=== PATIENT | male | born 1980 | race Caucasian/White ===

== ENCOUNTER 2020-11-14 08:53 | Outpatient (CLI) | payer OTHER, SELFPAY ==
--- NOTE | ~2020-11-14 | XR_ITS ---
EXAMINATION: XR chest 2V, XR abdomen/kub 1V DATE: 11/14/2020 09:14 INDICATION: Chest pain and gaseous abdominal distention. TECHNIQUE: 1. PA and lateral views of the chest were obtained. 2. AP view of the abdomen and pelvis was obtained on 2 radiographs. COMPARISON: None FINDINGS: Chest: The lungs are clear with no focal airspace opacities, pulmonary edema, pleural effusion or pneumothor ax. The cardiomediastinal silhouette is normal. Mild thoracic spondylosis with mild anterior wedging of a few mid thoracic vertebral bodies. KUB: Small to moderate amount of gas and stool scattered throughout the normal caliber colon. No dilated g as-filled loops of bowel to suggest obstruction. No organomegaly. Mild lumbar spondylosis. Left supra -acetabular bone island. IMPRESSION: 1. No acute cardiopulmonary disease. 2. Normal bowel gas pattern. Reviewed, dictated and finalized at location A. IMPRESSION: 1. No acute cardiopulmonary disease. 2. Normal bowel gas pattern.
== END 2020-11-14 08:54 | disposition home or self-care (01) ==
PROVIDERS: PCP Family Medicine; Visit Provider Family Medicine
DX: R14.0 Abdominal distension (gaseous) (principal); R07.89 Other chest pain
CPT/HCPCS: 71046; 74018

== ENCOUNTER 2021-04-23 15:35 | Outpatient (CLI) | payer OTHER, SELFPAY ==
--- NOTE | ~2021-04-23 | XR_ITS ---
XR lumbar spine 2-3V DATE: 04/23/2021 15:57 INDICATION: Back pain TECHNIQUE: AP, lateral, coned lateral lumbosacral views COMPARISON: 11/22/2017 CT lumbar spine FINDINGS: There is moderately severe degenerative disc disease at L1 to and mild degenerative disc di sease at L2-3, L3-4. No fracture or bone destruction. The lumbar pedicles are intact. No spondylolisthesis. The sacroiliac joints are intact. IMPRESSION: Multilevel degenerative disc disease involving primarily the upper lumbar area Reviewed, dictated and finalized at location A.
== END 2021-04-23 15:36 | disposition home or self-care (01) ==
LOC: ANHIMG 15:41
PROVIDERS: PCP Family Medicine; Visit Provider Physician Assistant
DX: M47.27 Other spondylosis with radiculopathy, lumbosacral region (principal); S39.012A Strain of muscle, fascia and tendon of lower back, initial encounter
CPT/HCPCS: 72100

== ENCOUNTER 2023-02-12 09:10 | Emergency (ER) | payer OTHER, SELFPAY ==
[2023-02-12 09:25] VITALS: BP 129/70; PULSE 78; RESP 18; TEMP 36.2; O2SAT 100
--- NOTE | 2023-02-12 09:33 | ED.SKABFB ---
HPI - Skin/Abscess/Foreign Bdy General Chief complaint: Skin/Abscess/Foreign Body Stated complaint: Abscess Time Seen by Provider: 02/12/23 09:29 Source: patient and RN notes reviewed Mode of arrival: ambulatory Limitations: no limitations History of Present Illness HPI narrative: Patient presents today complaining of an abscess between his buttocks x1 week that has been worsening since onset. He has been taking ibuprofen without much relief. Denies drainage, fever. He has been using some topical salve as well. No history of abscesses, boils, staph infections. Related Data Allergies Allergy/AdvReac Type Severity Reaction Status Date / Time No Known Allergies Allergy Unverified 02/12/23 09:29 Review of Systems Review of Systems: CONSTITUTIONAL: Denies body aches, fever, chills, or sweats. EYES: Denies visual changes, redness, or discharge. ENT: Denies rhinorrhea, congestion, sore throat, or otalgia. CARDIOVASCULAR: Denies chest pain, palpitations, or edema. RESPIRATORY: Denies cough or dyspnea. GASTROINTESTINAL: Denies abdominal pain, nausea, vomiting, or diarrhea. GENITOURINARY: Denies dysuria or hematuria. SKIN: + abscess MUSCULOSKELETAL: Denies back pain, joint pain, or myalgia. NEUROLOGIC: Denies headache, numbness, tingling, or weakness. PSYCH: Denies depression or anxiety. [facility] Past Medical History Medical History Lumbosacral spondylosis with radiculopathy Family History Family History Father Family history of premature coronary heart disease Patient's father is in good health Cerebrovascular accident Mother Patient's mother is in good health Sibling Patient's sister is in good health Social History Social History Social History: Smoking status: Never smoker Second hand tobacco smoke exposure: No Alcohol intake: current Alcohol use details: Once a month. Substance use: never Substance use type: does not use Living arrangements: with family Occupation/Education: occupation Gender identity (if verbalized by the patient): Male Sexual Orientation (if Verbalized by the Patient): Straight or Heterosexual Comments At time of signature, I have reviewed and agree with nursing past medical, surgical, social and family history unless otherwise noted. Please see nursing chart for further information. There is no relevant family history pertinent to the presenting complaint Exam Narrative: GENERAL: Well-appearing, well-nourished, and in no acute distress. HEAD: Normocephalic, atraumatic. EYES: EOMI. No redness or drainage. Conjunctivae normal. ENT: Mucous membranes pink and moist. NECK: Normal AROM. CHEST: No respiratory distress. EXTREMITIES: Normal range of motion. No edema. SKIN: Warm, dry, no rash. Capillary refill normal. Normal skin turgor. Approx 2.5cm fluctuant erythematous lesion to the anterior left buttock/perineal area. NEURO: No focal deficits. Alert and oriented x3. Gait steady. PSYCH: Normal affect. No signs of depression or anxiety. Course Course Level of Care: Express Care Visit Vital Signs Vital signs: Vital Signs Temperature 97.2 F L 02/12/23 09:25 Pulse Rate 78 02/12/23 09:25 Respiratory Rate 18 02/12/23 09:25 Blood Pressure 129/70 02/12/23 09:25 Pulse Oximetry 100 02/12/23 09:25 Oxygen Delivery Room Air 02/12/23 09:25 Temperature 97.2 F L 02/12/23 09:25 Pulse Rate 78 02/12/23 09:25 Respiratory Rate 18 02/12/23 09:25 Blood Pressure 129/70 02/12/23 09:25 Pulse Oximetry 100 02/12/23 09:25 Oxygen Delivery Room Air 02/12/23 09:25 Procedures Abscess I/D left buttock: Date of Incision: 02/12/23 Time of Incision: 10:03 Side (if applicable): left Sedation/analgesia: none L
== END 2023-02-12 10:21 | disposition home or self-care (01) ==
PROVIDERS: Emergency Provider Nurse Practitioner; PCP Family Medicine
DX: L02.31 Cutaneous abscess of buttock (principal); M47.27 Other spondylosis with radiculopathy, lumbosacral region
CPT/HCPCS: 10060; 87070; 87147; 87205; 99213; G0463

== ENCOUNTER 2023-09-03 13:42 | Emergency (ER) | payer OTHER, SELFPAY ==
--- NOTE | 2023-09-03 13:43 | ED.EYEPROB ---
HPI - Eye Problem General Chief complaint: Eye Problems Stated complaint: Rt Eye Irritation Time Seen by Provider: 09/03/23 13:43 Source: patient Mode of arrival: ambulatory Limitations: no limitations History of Present Illness HPI Narrative: Chaparro is a 42-year-old male patient presenting to the clinic today with complaints of right eye redness irritation times 2-3 days. He reports he was suffering from a cold last week and developed right eye redness, itchiness, and watering. States that he had some clear/white discharge coming from his eye/crusting this morning. Denies any eye pain or visual changes. Related Data Allergies Allergy/AdvReac Type Severity Reaction Status Date / Time No Known Allergies Allergy Verified 09/03/23 13:51 Review of Systems Review of Systems: Pertinent positives per HPI. Patient denies any fever, chills, rash, headache, visual changes, dizziness, cough, shortness of breath, chest pain, palpitations, nausea, vomiting, diarrhea, constipation, abdominal pain, or any urinary issues. PMFSH Past Medical History Medical History Lumbosacral spondylosis with radiculopathy Family History Family History Father Family history of premature coronary heart disease Patient's father is in good health Cerebrovascular accident Mother Patient's mother is in good health Sibling Patient's sister is in good health Social History Social History Social History: Smoking status: Never smoker Second hand tobacco smoke exposure: No Alcohol intake: current Alcohol use details: Once a month. Substance use: never Substance use type: does not use Living arrangements: with family Occupation/Education: occupation Gender identity (if verbalized by the patient): Male Sexual Orientation (if Verbalized by the Patient): Straight or Heterosexual Comments At the time of my signature, I reviewed and agree with the nursing past medical, surgical, social, and family history. There is no relevant family history pertinent to the patient complaint. Exam Narrative: General: Well-developed, well nourished, in no apparent distress Head: Normocephalic, atraumatic Eyes: Pupils equally round and reactive to light bilaterally, EOM intact, left sclera and conjunctive clear, right sclera and conjunctiva mildly injected, no discharge, lids normal Ears: TMs intact and clear, ear canals clear, no drainage, grossly hearing normal. Nose: Nares patent, no discharge, no inflammation, no sinus tenderness. Mouth: Oral pharynx without lesions or masses, good dentition, MMM. Neck: Supple, trachea midline, no enlargement of anterior or posterior cervical nodes, no thyroid masses or goiter palpable. Cardio: Regular rate and rhythm, s1 and s2 normal, no murmur appreciated. Resp: Clear to auscultation bilaterally, no rhonchi, rales, wheezing or rubs Course Course Emergency Course: Portions of this record may have been created with voice recognition software. Level of Care: Express Care Visit Vital Signs Vital signs: Vital signs reviewed MDM - Eye Problem MDM Narrative Medical decision making narrative: At the time of visit patient is resting comfortably on the exam table. Patient appears to be nontoxic. Plan: I suspect patient has acute viral conjunctivitis versus allergic conjunctivitis. Prescription for azelastine eyedrops was sent to the pharmacy. Supportive measures were discussed with the patient and they voiced understanding discharge instructions and agrees to treatment plan. Return precautions reviewed Differential Diagnosis Differential diagnosis: Likely corneal abrasion, conjunctivitis, acute iritis, hyphema, periorbital cellulitis, subconjunctival hemorrhage, glaucoma and corneal ulcer Discharge Plan Disch
[2023-09-03 13:50] VITALS: BP 133/74; PULSE 64; RESP 18; TEMP 36.7; O2SAT 100
== END 2023-09-03 14:00 | disposition home or self-care (01) ==
PROVIDERS: Emergency Provider Nurse Practitioner Family; PCP Family Medicine
DX: H57.89 Other specified disorders of eye and adnexa (principal); M47.26 Other spondylosis with radiculopathy, lumbar region
CPT/HCPCS: 99213; G0463

== ENCOUNTER 2024-06-11 08:07 | Emergency (ER) | payer OTHER, SELFPAY ==
[2024-06-11 08:44] VITALS: BP 143/79; PULSE 68; RESP 16; TEMP 36.6; O2SAT 100
--- NOTE | 2024-06-11 09:22 | ED_ITS ---
HPI - Back Pain/Injury General Chief Complaint: Back Pain/Injury Stated Complaint: Lower back pain Time Seen by Provider: 06/11/24 09:22 Source: patient Mode of arrival: ambulatory Limitations: no limitations History of Present Illness HPI Narrative: 43-year-old male presents complaining low back pain after injury yesterday. He states after vacuuming he lifted the vacuum and felt sharp pain to the mid lower back. He states he has had a similar pain in the past. He says at first the pain radiated into the hip and upper legs which has now improved. States pain is worse when standing upright, cannot tolerate standing straight. He has taken Aleve. Denies numbness, tingling, weakness of the lower extremities, or change in gait, saddle paresthesia or loss of bowel or bladder. Related Data Allergies Allergy/AdvReac Type Severity Reaction Status Date / Time No Known Allergies Allergy Verified 06/11/24 08:52 Review of Systems Review of Systems: CONSTITUTIONAL: Denies body aches, fever, chills EYES: Denies visual changes CARDIOVASCULAR: Denies chest pain, palpitations, or edema. RESPIRATORY: Denies cough or dyspnea. GASTROINTESTINAL: Denies abdominal pain, nausea, vomiting, or diarrhea. SKIN: Denies rash, itching, or wounds. MUSCULOSKELETAL: reports back pain NEUROLOGIC: Denies headache, numbness, tingling, or weakness. All systems reviewed & are unremarkable except as noted in HPI and below PMFSH Past Medical History Medical History Lumbosacral spondylosis with radiculopathy Family History Family History Father Family history of premature coronary heart disease Patient's father is in good health Cerebrovascular accident Mother Patient's mother is in good health Sibling Patient's sister is in good health Social History Social History Social History: Smoking status: Never smoker Second hand tobacco smoke exposure: No Alcohol intake: current Alcohol use details: Once a month. Substance use: never Substance use type: does not use Living arrangements: with family Occupation/Education: occupation Gender identity (if verbalized by the patient): Male Sexual Orientation (if Verbalized by the Patient): Straight or Heterosexual Comments At time of signature, I have reviewed and agree with nursing past medical, surgical, social and family history unless otherwise noted. Please see nursing chart for further information. There is no relevant family history pertinent to the presenting complaint Exam Narrative: GENERAL: Well-appearing CHEST: Speaks in full sentences. No respiratory distress. HEART: Regular rate and rhythm. Normal and equal peripheral pulses. MUSC: No Vertebral point tenderness or paraspinal tenderness. BLEs with normal strength and sensation, normal range of motion to BLEs. endorses pain with standing straight. No bruising, No open wounds, or obvious deformity; alignment normal, pulse palpable and equal bilaterally, skin warm, dry, pink. Capillary refill less than 3 seconds. Gait steady. SKIN: Warm, dry, no rash. NEURO: Alert and oriented x3. Course Course Emergency Course: Patient is aware of diagnosis, understands and agrees to treatment plan. Anticipatory guidance given. Patient agrees to follow-up as directed and is aware of reasons to seek care at the emergency department. Portions of this record may have been created with voice recognition software Level of Care: Express Care Visit Vital Signs Vital signs: Vital Signs Temperature 97.9 F 06/11/24 08:44 Pulse Rate 68 06/11/24 08:44 Respiratory Rate 16 06/11/24 08:44 Blood Pressure 143/79 H 06/11/24 08:44 Pulse Oximetry 100 06/11/24 08:44 Oxygen Delivery Room Air 06/11/24 08:44 Temperature 97.9 F 06/11/24 08:44 Pulse Rate 68 06/11/24 08:44 Respiratory Rate 16 06/11/24 08:44 Blood Pressure 143/79 H 06/11/24 08:44 Pulse Oximetry 100 06/11/24 08:44 Oxygen Delivery Room Air 06/11/24 08:44 Reviewed MDM - Back Pain/Injury MDM Narrative Medical decision making narrative: Discussed physical exam findings and reviewed prescriptions. Advised supportive measures and s/s to go to the ER. Pt is stable and appropr iate for outpt treatment and follow up with pcp. Differential Diagnosis Differential diagnosis: Likely lumbar radiculopathy, sciatica, strain of lumbar region, renal colic, pyelonephritis and discitis Discharge Plan Discharge Clinical Impression: Strain of lumbar region Patient Disposition: Home, Self-Care Condition: Stable Instructions: Antibiotic Form, Low Back Strain (ED) Additional Instructions: Please follow up with your Primary Care Doctor within 48-72 hours - call for an appointment. Avoid lifting. pushing. pulling, excessive standing, or anything that worsens the pain. Walking and other gentle exercising several times a week has been shown to improve back pain; bed rest is not recommended. Take medication as directed Take muscle relaxers every 8 hours as needed for muscle spasm- do not drive or make any important decisions while on this medication for it can make you drowsy. Over the counter pain cream like icy/hot or biofreeze, or Salon pas/lidocaine 4% patch. You may apply heat or cold to the area as needed. Go to the ER for any worsening symptoms or concerns Patient Language: Vietnamese Prescriptions: New cyclobenzaprine 10 mg tablet 10 mg PO TID PRN (Reason: muscle spasm) Qty: 10 0RF prednisone 20 mg tablet 20 mg PO DAILY Qty: 12 0RF Rx Instructions: Take 3 tablets for 2 days, then 2 tablets for 2 days, then one tablet for 2 days. No Action azelastine 0.05 % drops 1 drp LEFT EYE BID 7 Days Qty: 6 0RF Follow-up/Referrals: Lilibeth Low MD [Primary Care Provider] - Time of Disposition: 09:30
--- OUTSIDE RECORDS SUMMARY | 2024-06-18 15:59 | XMS_ITS | Encounter Summary ---
Author Organization [facility] Address [address] [place] [address] Care Team Providers Care Game Show Host Name Role Phone Unavailable Primary Care Provider Unavailabl e Reason for Visit * Reason Onset Date Comments Follow-up 07/04/2017 Encounter Details Date Type Department Care Team (Late st Contact Info) Description 07/04/2017 Telephone [facility] [employer] [facility] [address] [place] [address] Lu Reed, DIE [facility] [address] [place], [place] Follow-up Social History Tobacco Use Types Packs/Day Years Used Date Smoking Tobacco: Never Smokeless Tobacco: Never Sex and Gender Information Value Date Recorded Sex Assigned at Not on file Gender Identity Not on file Sexual Orientation Not on file documented as of this encounter Plan of Treatment Not on file documented as of this encounter Visit Diagnoses Not on filedocumented in this encounter
--- OUTSIDE RECORDS SUMMARY | 2024-06-18 15:59 | XMS_ITS | Patient Health Summary ---
Author Organization [facility] [employer] Address [address] [place] [address] Care Team Providers Care Esthetician And Manager Medical Spa Name Role Phone Unavailable Primary Care Provider Unavailabl e Note from [facility],non-owned Affiliates and Associated Physician Practices is amultiple site organization consisting of ambulatory clinics and hospital sitesin [place], [place], [place] and [place]. This disclosure is being madepursuant to the Care Everywhere program and may not contain all information available regarding this patient. Last updated 18.[facility] [employer] Allergies No known active allergies Medications Be aware that medications may not be up to date on this document. Always verify current medications with the patient. No known medications Social History Tobacco Use Types Packs/Day Years Used Date Smoking Tobacco: Never Smokeless Tobacco: Never Sex and Gender Information Value Date Recorded Sex Assigned at Not on file Gender Identity Not on file Sexual Orientation Not on file Last Filed Vital Signs Vital Sign Reading Time Taken Comments Blood Pressure 114/80 07/02/2017 3:45 PM WAITER/WAITRESS CAPTAIN Pulse 74 07/02/2017 3:45 PM WAITER/WAITRESS CAPTAIN Temperature 36.8 ??C (98.3 ??F) 07/02/2017 3:45 PM CS T Respiratory Rate 16 07/02/2017 3:45 PM WAITER/WAITRESS CAPTAIN Oxygen Saturation 98% 07/02/2017 3:45 PM WAITER/WAITRESS CAPTAIN Inhaled Oxygen Concentration - - Weight 108.4 kg (239 lb) 07/02/2017 3:45 PM WAITER/WAITRESS CAPTAIN Height 188 cm (6' 2 ) 07/02/2017 3:45 PM WAITER/WAITRESS CAPTAIN Body Mass Index 30.69 07/02/2017 3:45 PM WAITER/WAITRESS CAPTAIN Procedures * STREP A SCREEN - POINT OF CARE (AMB) STL(Performed 07/02/2017) Performed for Acute pharyngitis, unspecified etiology Results * STREP A SCREEN (07/02/2017 4:06 PM WAITER/WAITRESS CAPTAIN) Strep A Rapid POCT Negative Negative Strep A Internal Control Present Lot # [id number] Expiration Date 12/13/2018 Throat ENTIRE THROAT (SURFACE REGION OF NECK) / Unknown 07/02/2017 4:06 PM WAITER/WAITRESS CAPTAIN Lu Reed SALES REPRESENTATIVE [employer] ADMINISTRATOR LAB - POINT OF CARE ORDERABLES
--- OUTSIDE RECORDS SUMMARY | 2024-06-18 15:59 | XMS_ITS | Encounter Summary ---
Author Organization [facility] Address [facility] [place] [address] Care Team Providers Care Corporate Communications Manager Name Role Phone Unavailable Primary Care Provider Unavailabl e Reason for Visit * Reason Comments Sore Throat Encounter Details Date Type Department Care Team ([facility] st Contact Info) Description 07/02/2017 3:40 PM MARITIME GUARD Office Visit [facility] AT [address] [address] Provider, Paula [facility] Acute pharyngitis, unspecified etiology (Primary Dx) Social History Tobacco Use Types Packs/Day Years Used Date Smoking Tobacco: Never Smokeless Tobacco: Never Sex and Gender Information Value Date Recorded Sex Assigned at Not on file Gender Identity Not on file Sexual Orientation Not on file documented as of this encounter Last Filed Vital Signs Vital Sign Reading Time Taken Comments Blood Pressure 114/80 07/02/2017 3:45 PM MARITIME GUARD Pulse 74 07/02/2017 3:45 PM MARITIME GUARD Temperature 36.8 ??C (98.3 ??F) 07/02/2017 3:45 PM CS T Respiratory Rate 16 07/02/2017 3:45 PM MARITIME GUARD Oxygen Saturation 98% 07/02/2017 3:45 PM MARITIME GUARD Inhaled Oxygen Concentration - - Weight 108.4 kg (239 lb) 07/02/2017 3:45 PM MARITIME GUARD Height 188 cm (6' 2 ) 07/02/2017 3:45 PM MARITIME GUARD Body Mass Index 30.69 07/02/2017 3:45 PM MARITIME GUARD documented in this encounter Patient Instructions * Patient Instructions* Lu Reed APRN-CORNELL - 07/02/2017 4:04 PM MARITIME GUARD Pharyngitis WHAT YOU NEED TO KNOW: Pharyngitis, or sore throat, is inflammation of the tissues and structures in your pharynx (throat). Pharyngitis is most often caused by bacteria. It may also be caused by a cold or flu virus. Other causes include smoking, allergies, or acid reflux. DISCHARGE INSTRUCTIONS: Call 911 for any of the following: ?? You have trouble breathing or swallowing because your throat is swollen or sore. Return to the emergency department if: ?? You are drooling because it hurts too much to swallow. ?? Your fever is higher than 102?F (39?C) or lasts longer than 3 days. ?? You are confused. ?? You taste blood in your throat. Contact your healthcare provider if: ?? Your throat pain gets worse. ?? You have a painful lump in your throat that does not go away after 5 days. ?? Your symptoms do not improve after 5 days. ?? You have questions or concerns about your condition or care. Medicines: Viral pharyngitis will go away on its own without treatment. Your sore throat should start to feel better in 3 to 5 days for both viral and bacterial infections. You may need any of the following: ?? Antibiotics treat a bacterial infection. ?? NSAIDs , such as ibuprofen, help decrease swelling, pain, and fever. NSAIDs can cause stomach bleeding or kidney problems in certain people. If you take blood thinner medicine, always ask your healthcare provider if NSAIDs are safe for you. Always read the medicine label and follow directions. ?? Acetaminophen decreases pain and fever. It is available without a doctor's order. Ask how much to take and how often to take it. Follow directions. Acetaminophen can cause liver damage if not taken correctly. ?? Take your medicine as directed. Contact your healthcare provider if you think your medicine is not helping or if you have side effects. Tell him or her if you are allergic to any medicine. Keep a list of the medicines, vitamins, and herbs you take. Include the amounts, and when and why you take them. Bring the list or the pill bottles to follow-up visits. Carry your medicine list with you in case of an emergency. Manage your symptoms: ?? Gargle salt water. Mix ?? teaspoon salt in an 8 ounce glass of warm water and gargle. This may help decrease swelling in your throat. ?? Drink liquids as directed. You may need to drink more liquids than usual. Liquids may help soothe your throat and prevent dehydration. Ask how much liquid to drink each day and which liquids are best for you. ?? Use a cool-steam humidifier to help moisten the air in your room and calm your cough. ?? Soothe your throat with cough drops, ice, soft foods, or popsicles. Prevent the spread of pharyngitis: Cover your mouth and nose when you cough or sneeze. Do not sharefood or drinks. Wash your hands often. Use soap and water. If soap and water are unavailable, use an alcohol based hand shot core drill operator helper. Follow up with your healthcare provider as directed: Write down your questions so you remember to ask them during your visits. ?? 2017 [employer] Information is for End User's use only and may not be sold, redistributed or otherwise used for commercial purposes. All illustrations and images included in CareNotes?? are the copyrighted property of [employer]. or [employer]. The above information is an clinical laboratory aides teacher only. It is not intended as medical advice for individual conditions or treatments. Talk to your doctor, nurse or pharmacist before following any medical regimen to see if it is safe and effective for you. TIME GUARD documented in this encounter Progress Notes * Lu Reed APRN-CNP - 07/02/2017 3:55 PM CST History Chaparro Romero is a 36 y.o. male who presents to the clinic with Chief Complaint Patient presents with ??? Sore Throat . Primary Care Physician is No primary care provider on file.. He reports the following symptoms: sore throat and left ear pressure since this am. Pt was sick 10 days ago with fever,cough, and headaches which lasted approximately 4 days and completely resolved. The Clinical course has been stable, unchanged. Sore throat is worse in the morning. Patient is drinking plenty of fluids.. Pt has been taking Advil, Mucinex, and Tylenol. Past Medical History: Diagnosis Date ??? NEGATIVE PAST MEDICAL HISTORY - SEE PROBLEM LIST Family History Problem Relation Age of Onset ??? Coronary Artery Disease Father [place] x 2; CABG No current outpatient prescriptions on file. No current facility-administered medications for this visit. No Known Allergies Social History Social History ??? Marital status: Spouse name: N/A ??? Number of children: N/A ??? Years of education: N/A Occupational History ??? Not on file. Social History Main Topics ??? Smoking status: Never Smoker ??? Smokeless tobacco: Never Used ??? Alcohol use Not on file ??? Drug use: Not on file ??? Sexual activity: Not on file Other Topics Concern ??? Not on file Social History Narrative ??? No narrative on file Review of Systems Pertinent items are noted in HPI Constitutional: Negative Eyes: Negative Ears, nose, mouth, and throat: Positive for sore throat, left ear pressure Respiratory: Negative Cardiovascular: Negative Gastrointestinal: Negative Skin: Negative Neurological: Negative Objective: BP 114/80 (BP SITE: LEFT ARM, BP POSITION: SITTING, BP CUFF SIZE: Adult) Pulse 74 Temp 98.3 ??F (Oral) Resp 16 Ht 1.88 m (6' 2 ) Wt 108.4 kg (239 lb) SpO2 98% BMI 30.69 kg/m2 General appearance: alert, cooperative, no distress, oriented to person, place, and time, well appearing Head: normocephalic, without trauma Eyes: sclera and conjunctiva clear, EOMI and PERRLA, lids normal Ears: canals clear, tympanic membranes normal, hearing intact to voice Nose: nares open; no septal deviation is noted, nasal mucosa not inflamed, no maxillary tenderness Throat: no mucous membrane abnormalities, mild oropharyngeal erythema, no tonsillar hypertrophy or exudates. Post nasal drainage noted. Neck: range of motion is intact, no masses, no cervical adenopathy Lungs: breath sounds normal and symmetric; no rales or wheezes Heart: regular rhythm, normal S1 and S2, without murmurs, gallops or rubs Neurologic: mental status normal; alert and oriented X 3 Assessment: Encounter Diagnosis Name Primary? Acute pharyngitis, unspecified etiology Yes Plan: See orders, medications and patient instructions. Use of OTC analgesics recommended as well as salt water gargles. Patient advised of the risk of peritonsillar abscess formation. Educational materials given. Follow up PRN. Throat culture offered. Declined. Recommend OTC antihistamine per package instructions for post nasal drainage. You may take OTC Tylenol or Ibuprofen per package instructions. Warm salt water gargles. Drink plenty of fluids. Warm fluids may be soothing for your throat. Follow-up for any persistent or worsening symptoms. Go to ED for any drooling or significant swelling of throat. Orders Placed This Encounter ??? STREP A SCREEN Recent Results (from the past 24 hour(s)) STREP A SCREEN Collection Time: 07/02/17 4:06 PM Result Value Ref Range Strep A Rapid Negative Negative Strep A INTERNAL CONTROL Present Lot Number [id number] Expiration Date 12/13/2018 TIME GUARD documented in this encounter Plan of Treatment Not on file documented as of this encounter Procedures Procedure Name Priority Date/Time Associated Diagnosis Comments STREP A SCREEN - POINT OF CARE (AMB) STL Routine 07/02/2017 4:06 PM MARITIME GUARD Acute pharyngitis, unspecified etiology documented in this encounter Results * STREP A SCREEN (07/02/2017 4:06 PM MARITIME GUARD) Strep A Rapid POCT Negative Negative Strep A Internal Control Present Lot # [id number] Expiration Date 12/13/2018 Throat ENTIRE THROAT (SURFACE REGION OF NECK) / Unknown 07/02/2017 4:06 PM MARITIME GUARD [facility] - POINT OF CARE ORDERABLES documented in this encounter Visit Diagnoses Diagnosis Acute pharyngitis, unspecified etiology- Primary documented in this encounter
--- OUTSIDE RECORDS SUMMARY | 2024-06-18 15:59 | XMS_ITS | Clinical Summary ---
Author Organization [facility] Address [address] [place] [address] Care Team Providers Care Paralegal Supervisor Name Role Phone Unavailable Primary Care Provider Unavailabl e Source Comments [facility],non-owned Affiliates and Associated Physician Practices is amultiple site organization consisting of ambulatory clinics and hospital sitesin [place], [place], [place] and [place]. This disclosure is being madepursuant to the Care Everywhere program and may not contain all information available regarding this patient. Last updated 18.[facility] Allergies No known active allergies Medications Be aware that medications may not be up to date on this document. Always verify current medications with the patient. No known medications Family History Medical History Relation Name Comments CAD (Coronary Artery Disease) Father MD x 2; CABG Relation Name Status Comments Father Social History Tobacco Use Types Packs/Day Years Used Date Smoking Tobacco: Never Smokeless Tobacco: Never Sex and Gender Information Value Date Recorded Sex Assigned at Not on file Gender Identity Not on file Sexual Orientation Not on file Last Filed Vital Signs Vital Sign Reading Time Taken Comments Blood Pressure 114/80 07/02/2017 3:45 PM PROJECT MANAGER/DESIGN MANAGER Pulse 74 07/02/2017 3:45 PM PROJECT MANAGER/DESIGN MANAGER Temperature 36.8 ??C (98.3 ??F) 07/02/2017 3:45 PM CS T Respiratory Rate 16 07/02/2017 3:45 PM PROJECT MANAGER/DESIGN MANAGER Oxygen Saturation 98% 07/02/2017 3:45 PM PROJECT MANAGER/DESIGN MANAGER Inhaled Oxygen Concentration - - Weight 108.4 kg (239 lb) 07/02/2017 3:45 PM PROJECT MANAGER/DESIGN MANAGER Height 188 cm (6' 2 ) 07/02/2017 3:45 PM PROJECT MANAGER/DESIGN MANAGER Body Mass Index 30.69 07/02/2017 3:45 PM PROJECT MANAGER/DESIGN MANAGER Plan of Treatment Health Maintenance Due Date Last Done Comments DMITRY (AGES 45-75) - COL ON CA SCREENING 1978 COLON MONITORING 1978 COLONOSCOPY - COLON CA SCREENING 1978 CT COLONOGRAPHY - COLON CA SCREENING 1978 Colorectal Cancer Screening 1978 FIT - COLON CA SCREENING 1978 FLEX SIG - COLON CA SCREENING 1978 LIPID TESTING 1978 HIV SCREENING 1993 HEPATITIS C SCREENING 09/11/1996 DTAP/TDAP/TD VACCINES (1 - Tdap) 1997 HEPATITIS B VACCINE (1 of 3 - 19+ 3-dose series) 1997 DEPRESSION SCREENING 06/20/2023 COVID-19 VACCINE (1 - 2023-2 5 season) 2024 INFLUENZA VACCINE (#1) 2024 ZOSTER VACCINE (1 of 2) 2028 HIB VACCINE Aged Out No longer eligi ble based on patient's age to complete this topic HPV VACCINE Aged Out No longer eligi ble based on patient's age to complete this topic MENINGOCOCCAL VACCINE Aged Out No tamiko david eligible based on patient's age to complete this topic PNEUMOCOCCAL VACCINE Aged Out No long er eligible based on patient's age to complete this topic
--- OUTSIDE RECORDS SUMMARY | 2024-06-18 15:59 | XMS_ITS | Referral Summary ---
Author Organization [facility] Address [address] [place] [address] Care Team Providers Care Team Assembler Name Role Phone Unavailable Primary Care Provider Unavailabl e Source Comments [facility],non-owned Affiliates and Associated Physician Practices is amultiple site organization consisting of ambulatory clinics and hospital sitesin [place], [place], [place] and [place]. This disclosure is being madepursuant to the Care Everywhere program and may not contain all information available regarding this patient. Last updated 18.[facility] Allergies No known active allergies Medications Be [...] Comments Blood Pressure 114/80 07/02/2017 3:45 PM TELECOMMUNICATIONS FIELD TECHNICIAN Pulse 74 07/02/2017 3:45 PM TELECOMMUNICATIONS FIELD TECHNICIAN Temperature 36.8 ??C (98.3 ??F) 07/02/2017 3:45 PM CS T Respiratory Rate 16 07/02/2017 3:45 PM TELECOMMUNICATIONS FIELD TECHNICIAN Oxygen Saturation 98% 07/02/2017 3:45 PM TELECOMMUNICATIONS FIELD TECHNICIAN Inhaled Oxygen Concentration - - Weight 108.4 kg (239 lb) 07/02/2017 3:45 PM TELECOMMUNICATIONS FIELD TECHNICIAN Height 188 cm (6' 2 ) 07/02/2017 3:45 PM TELECOMMUNICATIONS FIELD TECHNICIAN Body Mass Index 30.69 07/02/2017 3:45 PM TELECOMMUNICATIONS FIELD TECHNICIAN Plan of Treatment Not on file
--- OUTSIDE RECORDS SUMMARY | 2024-06-18 16:00 | XMS_ITS | Clinical Summary ---
Author Organization [facility] Address [address] [place] [address] [place] [address] Care Team Providers Care Perianesthesia Nurse Name Role Phone Lilibeth Low MD Primary Care Provider +1- [phone] Medications No known medications Active Problems No known active problems Family History Medical History Relation Name Comments Diabetes Father Marko Romero Hypertension Father Marko Romero Relation Name Status Comments Father Marko Romero Social History Tobacco Use Types Packs/Day Years Used Date Smoking Tobacco: Never Alcohol Use Standard Drinks/Week Comments Yes 1 (1 standard drink = 0.6 oz pur e alcohol) Sex and Gender Information Value Date Recorded Sex Assigned at Not on file Gender Identity Not on file Sexual Orientation Not on file Last Filed Vital Signs Vital Sign Reading Time Taken Comments Blood Pressure 122/70 11/05/2022 11:02 AM CDT Pulse 95 12/28/2017 7:13 AM CDT Temperature - - Respiratory Rate - - Oxygen Saturation - - Inhaled Oxygen Concentration - - Weight 107 kg (236 lb) 11/05/2022 11:02 AM CDT Height 190.5 cm (6' 3 ) 11/05/2022 11:02 AM CDT Body Mass Index 29.5 11/05/2022 11:02 AM CDT Plan of Treatment Health Maintenance Due Date Last Done Comments DTAP/TDAP/TD VACCINES (1 - Tdap) 1997 HEPATITIS B VACCINES (1 of 3 - 19+ 3-dose series) 1997 COLORECTAL SCREENING 09/17/2023 Colorectal Cancer Screening 09/17/2023 FIT-DNA Q 3 years 09/17/2023 FIT/FOBT Q 1 year 09/17/2023 Flex Sig/CT Colonography Q 5 years 09/17/2023 INFLUENZA VACCINE (#1) 2024 HPV VACCINES Aged Out No longer eligi ble based on patient's age to complete this topic PNEUMOCOCCAL VACCINE 0-64 YEARS Aged Out No longer eligible based on patient's age to complete this topic Care Teams Perianesthesia Nurse Relationship Specialty Start Date End Date Lilibeth Low MD PCP - General Family Practice 12/28/17
--- OUTSIDE RECORDS SUMMARY | 2024-06-18 16:00 | XMS_ITS | Encounter Summary ---
Author Organization [facility] Address [address] [place] [address] Care Team Providers Care Airways Control Specialist Name Role Phone Lilibeth Low MD Primary Care Provider +1- [phone] Reason for Visit * Reason Comments Labs Only Encounter Details Date Type Department Care Team (Latest Contact Info) Description 12/09/2020 2:30 PM CDT Clinical Support [facility] [place] [address] [place] [address] Encounter for screening, unspecified (Primary Dx) Social History Tobacco Use Types Packs/Day Years Used Date Smoking Tobacco: Never Assessed Sex and Gender Information Value Date Recorded Sex Assigned at Not on file Gender Identity Not on file Sexual Orientation Not on file documented as of this encounter Last Filed Vital Signs Vital Sign Reading Time Taken Comments Blood Pressure 142/88 12/09/2020 2:29 PM CDT Pulse - - Temperature - - Respiratory Rate - - Oxygen Saturation - - Inhaled Oxygen Concentration - - Weight 108 kg (238 lb) 12/09/2020 2:29 PM CDT Height 189.2 cm (6' 2.5 ) 12/09/2020 2:29 PM CDT Body Mass Index 30.15 12/09/2020 2:29 PM CDT documented in this encounter Progress Notes * Tessa Bae - 12/09/2020 2:31 PM CDT Pt came in for annual wellness screening finger stick, right hand 2nd digit, pt tolerate well. EDMUNDO Grubbs Recommended pt follow up regarding cholesterol. Pt states he has a PCP that he will take these too. documented in this encounter Plan of Treatment Not on file documented as of this encounter Procedures Procedure Name Priority Date/Time Associated Diagnosis Comments POC LIPID PANEL AND GLUCOSE Routine 12/09/2020 2:31 PM CDT documented in this encounter Results * (ABNORMAL) POC LIPID PANEL AND GLUCOSE (12/09/2020 2:31 PM CDT) CHOLESTEROL 302(A) 200 mg/dL [facility] HDL 53 40 - 59 mg/dL [facility] LDL CALCULATED 223(A) 100 mg/dL [facility] TRIGLYCERIDE 128 150 mg/dL [facility] NON-HDL CHOLESTEROL 0 130 mg/dL [facility] Comment:NA CHOL/HDL RATIO 5.7 [facility] GLUCOSE POC 104(A) 74 - 99 mg/dL [facility] Blood 12/09/2020 2:31 PM CDT Abstract Provider POINT OF CARE TESTIN G COM [facility] CLIA# [id number] [address] [place] [address] documented in this encounter Visit Diagnoses Diagnosis Encounter for screening, unspecified- Primary documented in this encounter Care Teams Airways Control Specialist Relationship Specialty Start Date End Date Lilibeth Low MD PCP - General Family Practice 12/28/17 documented as of this encounter
--- OUTSIDE RECORDS SUMMARY | 2024-06-18 16:00 | XMS_ITS | Clinical Summary ---
Author Organization [facility] Address [address] [place] [address] Care Team Providers Care Shipping And Receiving Specialist Name Role Phone Lilibeth Low MD Primary Care Provider Allergies No known active allergies Medications traMADoL (ULTRAM) 50 mg tablet Take by mouth every 8 (eight) hours as needed 04/24/2021 Active cyclobenzaprine (FLEXERIL) 5 mg tablet Take 5 mg by mouth 3 (three) times a day as needed for muscle spasms 04/17/2021 Active Active Problems No known active problems Family History Medical History Relation Name Comments Diabetes Father Heart disease Father Hypertension Father Cancer Mother Relation Name Status Comments Father Mother Social History Tobacco Use Types Packs/Day Years Used Date Smoking Tobacco: Never Smokeless Tobacco: Never Personal Safety Answer Date Recorded Getting School Help Needed Not on file 09/03 Sex and Gender Information Value Date Recorded Sex Assigned at Not on file Legal Sex Male 9:11 AM COOK HELPER VEGETABLE Gender Identity Male 05/26/2021 9:18 AM COOK HELPER VEGETABLE Sexual Orientation Not on file Obstetrics History Last Filed Vital Signs Vital Sign Reading Time Taken Comments Blood Pressure - - Pulse - - Temperature - - Respiratory Rate - - Oxygen Saturation - - Inhaled Oxygen Concentration - - Weight 103 kg (227 lb) 05/26/2021 10:08 AM COOK HELPER VEGETABLE Height 188 cm (6' 2 ) 05/26/2021 10:08 AM COOK HELPER VEGETABLE Body Mass Index 29.15 05/26/2021 10:08 AM COOK HELPER VEGETABLE Plan of Treatment Not on file Insurance [facility] Care Teams Shipping And Receiving Specialist Relationship Specialty Start Date End Date Lilibeth Low MD [address] [facility] [address] [place] [address] PCP - General Family Medicine 04/29/21
--- OUTSIDE RECORDS SUMMARY | 2024-06-18 16:00 | XMS_ITS | Encounter Summary ---
Author Organization [facility] Address [address] [place] [address] Care Team Providers Care Senior It Project Manager Name Role Phone Lilibeth Low MD Primary Care Provider +1- [phone] Reason for Visit * Reason Comments Labs Only Annual wellness scre ening Encounter Details Date Type Department Care Team (Late st Contact Info) Description 12/28/2017 7:00 AM CDT Office Visit [facility] [employer] [address] [employer] [place] [address] Screening for condition (Primary Dx) Social History Tobacco Use Types Packs/Day Years Used Date Smoking Tobacco: Never Assessed Sex and Gender Information Value Date Recorded Sex Assigned at Not on file Gender Identity Not on file Sexual Orientation Not on file documented as of this encounter Last Filed Vital Signs Vital Sign Reading Time Taken Comments Blood Pressure 130/82 12/28/2017 7:13 AM CDT Pulse 95 12/28/2017 7:13 AM CDT Temperature - - Respiratory Rate - - Oxygen Saturation - - Inhaled Oxygen Concentration - - Weight 111.1 kg (245 lb) 12/28/2017 7:13 AM CDT Height 188 cm (6' 2 ) 12/28/2017 7:13 AM CDT Body Mass Index 31.46 12/28/2017 7:13 AM CDT documented in this encounter Progress Notes * Tessa Bae - 12/28/2017 7:13 AM CDT Pt came in for blood draw, right AC unsuccessful, left AC successful, 2 sticks, pt tolerated well. Drawn by [employer]. documented in this encounter Plan of Treatment Not on file documented as of this encounter Procedures Procedure Name Priority Date/Time Associated Diagnosis Comments CBC WITH DIFFERENTIAL Routine 12/28/2017 7:33 AM CDT Screening for condition TSH Routine 12/28/2017 7:33 AM CDT Screening for condition LIPID PANEL Routine 12/28/2017 7:33 AM CDT Screening for condition COMPREHENSIVE METABOLIC PANEL Routine 12/28/2017 7:33 AM CDT Screening for condition documented in this encounter Results * TSH (12/28/2017 7:33 AM CDT) TSH 1.700 0.450 - 4.500 uIU/mL [facility] Blood 12/28/2017 7:33 AM CDT 12/28/2017 Narrative [facility] - 12/29/2017 8:49 AM CDT Performed at: ??01 - [facility] [address] ??[id number] Coordinate Measuring Machine Operator: Reinaldo Schmitz PhD, Phone: ??[phone] Marie Silverman NP CHEMISTRY ORDER TESS [facility] * (ABNORMAL) LIPID PANEL (12/28/2017 7:33 AM CDT) CHOLESTEROL 273(H) 100 - 199 mg/dL [facility] TRIGLYCERIDE 150(H) 0 - 149 mg/dL [facility] HDL 50 >39 mg/dL [facility] VLDL CHOLESTEROL, CALCULATED 30 5 - 40 mg/dL [facility] LDL CALCULATED 193(H) 0 - 99 mg/dL [facility] LIPID PANEL COMMENT Comment [facility] Comment: Possible Familial Hypercholesterolemia. FH should be suspected when fasting LDL cholesterol is above 189 mg/dL or non-HDL cholesterol is above 219 mg/dL. A family history of high cholesterol and heart disease in 1st degree relatives should be collected. J Clin Lipidol 2011;5:133-140 Blood 12/28/2017 7:33 AM CDT 12/28/2017 Narrative [facility] - 12/29/2017 8:49 AM CDT Performed at: ??01 - [facility], [place], [place] ??[id number] Coordinate Measuring Machine Operator: Reinaldo Schmitz PhD, Phone: ??[phone] Marie Silverman [facility] CHEMISTRY ORDER TESS [facility] * COMPREHENSIVE METABOLIC PANEL (12/28/2017 7:33 AM CDT) GLUCOSE 82 65 - 99 mg/dL [facility] BUN 16 6 - 20 mg/dL [facility] CREATININE 0.88 0.76 - 1.27 mg/dL [facility] GFR 108 >59 mL/min/1.7 3 [facility] GFR, 125 >59 mL/min/1.7 3 [facility] BUN/CREAT RATIO 18 9 - 20 [facility] SODIUM 141 134 - 144 mmol/L [facility] POTASSIUM 4.9 3.5 - 5.2 mmol/L [facility] CHLORIDE 101 96 - 106 mmol/L [facility] CO2 25 20 - 29 mmol/L [facility] CALCIUM 10.0 8.7 - 10.2 mg/dL [facility] TOTAL PROTEIN 7.5 6.0 - 8.5 g/dL [facility] ALBUMIN 4.9 3.5 - 5.5 g/dL [facility] GLOBULIN 2.6 1.5 - 4.5 g/dL [facility] ALBUMIN/GLOBULIN RATIO 1.9 1.2 - 2.2 [facility] BILIRUBIN TOTAL 0.4 0.0 - 1.2 mg/dL [facility] ALKALINE PHOSPHATASE 83 39 - 117 IU/L [facility] AST 19 0 - 40 IU/L [facility] ALT 19 0 - 44 IU/L [facility] Blood 12/28/2017 7:33 AM CDT 12/28/2017 Narrative [facility] - 12/29/2017 8:49 AM CDT Performed at: ??01 - [facility] ??[id number] Coordinate Measuring Machine Operator: Reinaldo Schmitz PhD, Phone: ??[phone] Marie Silverman [facility] CHEMISTRY ORDER TESS [facility] * CBC WITH DIFFERENTIAL (12/28/2017 7:33 AM CDT) [facility] RESULT 5.5 3.4 - 10.8 x10E3/uL [facility] Comment:Component Name: WBC RBC 5.40 4.14 - 5.80 x10E6/uL [facility] 15.1 13.0 - 17.7 g/dL [facility] Comment:Component Name: Hemo globin [facility] RESULT 45.1 37.5 - 51.0 % [facility] Comment:Component Name: Francesco tocrit [facility] RESULT 84 79 - 97 fL [facility] Comment:Component Name: MCV [facility] RESULT 28.0 26.6 - 33.0 pg [facility] Comment:Component Name: MCH [facility] RESULT 33.5 31.5 - 35.7 g/dL [facility] Comment:Component Name: MCHC [facility] RESULT 13.4 12.3 - 15.4 % [facility] Comment:Component Name: RDW [facility] 260 150 - 379 x10E3/uL [facility] Comment:Component Name: Plat elets NEUTROPHIL 55 Not Estab. % [facility] LYMPHOCYTES 31 Not Estab. % [facility] MONOCYTE 11 Not Estab. % [facility] EOSINOPHILS 3 Not Estab. % [facility] BASOPHILS 0 Not Estab. % [facility] 3.0 1.4 - 7.0 x10E3/uL [facility] Comment:Component Name: Neut rophils (Absolute) [facility] RESULT 1.7 0.7 - 3.1 x10E3/uL [facility] Comment:Component Name: Lymp hs (Absolute) [facility] RESULT 0.6 0.1 - 0.9 x10E3/uL [facility] Comment:Component Name: Charlton cytes(Absolute) [facility] RESULT 0.2 0.0 - 0.4 x10E3/uL [facility] Comment:Component Name: Eos (Absolute) [facility] RESULT 0.0 0.0 - 0.2 x10E3/uL [facility] Comment:Component Name: Baso (Absolute) [facility] RESULT 0 Not Estab. % [facility] Comment:Component Name: Yolanda anthony Granulocytes [facility] RESULT 0.0 0.0 - 0.1 x10E3/uL [facility] Comment:Component Name: Yolanda cruz Grans (Abs) Blood 12/28/2017 7:33 AM CDT 12/28/2017 Narrative [facility] - 12/29/2017 6:37 AM CDT Performed at: ??01 - [facility] [address] ??[id number] Coordinate Measuring Machine Operator: Reinaldo Schmitz PhD, Phone: ??[phone] Marie Silverman [facility] HEMATOLOGY DOUGLAS BECKHAM [facility] documented in this encounter Visit Diagnoses Diagnosis Screening for condition- Primary Screening for unspecified condition documented in this encounter Care Teams Senior It Project Manager Relationship Specialty Start Date End Date Lilibeth Low MD PCP - General Family Practice 12/28/17 documented as of this encounter
--- OUTSIDE RECORDS SUMMARY | 2024-06-18 16:00 | XMS_ITS | Encounter Summary ---
Author Organization [employer] [facility] Address [address] [place] [address] Care Team Providers Care Remote Sensing Research Scientist Name Role Phone Lilibeth Low MD Primary Care Provider +1- [phone] Encounter Details Date Type Department Care Team (Late st Contact Info) Description 08/08/2023 External Device Data [facility] ABSTRACTION Provider, Abstract NO ADDRESS ON FILE Social History Tobacco Use Types Packs/Day Years [...] Diagnoses Not on filedocumented in this encounter Care Teams Remote Sensing Research Scientist Relationship Specialty Start Date End Date Lilibeth Low MD PCP - General Family Practice 12/28/17 documented as of this encounter
--- OUTSIDE RECORDS SUMMARY | 2024-06-18 16:00 | XMS_ITS | Encounter Summary ---
Author Organization [facility] Address [address] [place] [address] Care Team Providers Care Fire Safety Manager Name Role Phone Lilibeth Low MD Primary Care Provider +1- [phone] Reason for Visit * Reason Comments Labs Only Encounter Details Date Type Department Care Team (Late st Contact Info) Description 11/05/2022 11:00 AM CDT Office Visit [facility] [place] [address] [facility] [place] [address] Screening for condition (Primary Dx) Social History [...] Pressure 122/70 11/05/2022 11:02 AM CDT Pulse - - Temperature - - Respiratory Rate - - Oxygen Saturation - - Inhaled Oxygen Concentration - - Weight 107 kg (236 lb) 11/05/2022 11:02 AM CDT Height 190.5 cm (6' 3 ) 11/05/2022 11:02 AM CDT Body Mass Index 29.5 11/05/2022 11:02 AM CDT documented in this encounter Progress Notes * Tessa Gonsales - 11/05/2022 11:09 AM CDT Pt came in for blood draw, left AC successful, 1 stick pt tolerated well. Drawn by Sunil QUINTERO. documented in this encounter Miscellaneous Notes * Result Encounter Note - Dionne Reis NP - 11/10/2022 12:11 PM CDT Comprehensive metabolic panel demonstrated normal electrolytes, liver and kidney function. Complete blood count which looks for infection, anemia, and platelets (helps with blood clotting) was normal. Thyroid is within normal range. Cholesterol levels are not at goal. Please instruct patient to follow-up with PCP for cholesterol management. If he does not have a PCPhe is welcome to establish care here at the clinic. documented in this encounter Plan of Treatment Not on file documented as of this encounter Procedures Procedure Name Priority Date/Time Associated Diagnosis Comments CBC WITH DIFFERENTIAL Routine 11/05/2022 11:03 AM CDT Screening for condition TSH Routine 11/05/2022 11:03 AM CDT Screening for condition LIPID PANEL Routine 11/05/2022 11:03 AM CDT Screening for condition COMPREHENSIVE METABOLIC PANEL Routine 11/05/2022 11:03 AM CDT Screening for condition TEST IN QUESTION Routine 11/05/2022 11:0 3 AM CDT documented in this encounter Results * TSH (11/05/2022 11:03 AM CDT) TSH 1.46 0.40 - 4.50 mIU/L [facility] Comment: Test Performed at: [facility] [address] [place] ??[phone] Sravan Mccain MD Blood 11/05/2022 11:0 3 AM CDT 11/06/2022 6:23 AM CDT Dionne Reis NP CHEMISTRY ORDERAB LES [facility] [phone] [facility] [address] [place] [address] * (ABNORMAL) LIPID PANEL (11/05/2022 11:03 AM CDT) CHOLESTEROL 308(H) <200 mg/dL [facility] HDL 58 > OR = 40 mg/dL [facility] TRIGLYCERIDE 146 <150 mg/dL [facility] LDL CALCULATED 220(H) mg/dL (calc) [facility] Comment: LDL-C levels > or = 190 mg/dL may indicate familial hypercholesterolemia (FH). Clinical assessment and measurement of blood lipid levels should be considered for all first degree relatives of patients with an FH diagnosis. LDL Cholesterol (LDL-C) levels > or = 300 mg/dL may indicate homozygous familial hypercholesterolemia (HoFH). Untreated, these extremely high LDL-C levels can result in premature CV events and mortality. Patients should be identified early and provided appropriate interventions to reduce the cumulative LDL-C burden from . For questions about testing for familial hypercholesterolemia, please call [facility] at [email or web address].Bday.INFO. Francisco T, et al. J National Lipid Association Recommendations for Patient-Centered Management of Dyslipidemia: Part 1 Journal of Clinical Lipidology 2015;9(2), 129-169. Clover Milian. et al. (2014). Homozygous familial hypercholesterolaemia: new insights and guidance for clinicians to improve detection and clinical management. Heart Journal, 35(32), 1175-0933. Reference range: <100 Desirable range <100 mg/dL for primary prevention; ?? <70 mg/dL for patients with CHD or diabetic patients with > or = 2 CHD risk factors. LDL-C is now calculated using the Joshua-Mavis calculation, which is a validated novel method providing better accuracy than the Friedewald equation in the estimation of LDL-C. Joshua BROWN et al. CANDICE. 2013;310(19): 9237-6175 (http://education.[employer]/faq/GGE916) CHOL/HDL RATIO 5.3(H) <5.0 (calc) [facility] TOTAL NON-HDL CHOL(LDL+VLDL) 250(H) <130 mg/dL (calc) [facility] Comment: Non-HDL level > or = 220 is very high and may indicate genetic familial hypercholesterolemia (FH). Clinical assessment and measurement of blood lipid levels should be considered for all first-degree relatives of patients with an FH diagnosis. For patients with diabetes plus 1 major ASCVD risk factor, treating to a non-HDL-C goal of <100 mg/dL (LDL-C of <70 mg/dL) is considered a therapeutic option. Test Performed at: [facility] [address] [place] ??[phone] Sravan Mccain MD Blood 11/05/2022 11:0 3 AM CDT 11/06/2022 6:23 AM CDT Dionne Chante Reis NP CHEMISTRY ORDERAB [facility] [phone] [facility] [address] [place] [phone] * COMPREHENSIVE METABOLIC PANEL (11/05/2022 11:03 AM CDT) GLUCOSE 71 65 - 99 mg/dL [facility] Comment: ? Fasting reference interval BUN 17 7 - 25 mg/dL [facility] CREATININE 0.94 0.60 - 1.29 mg/dL [facility] GFR 103 > OR = 60 mL/min/1. 73m2 [facility] Comment: The eGFR is based on the CKD-EPI 2020 equation. To calculate the new eGFR from a previous Creatinine or Cystatin C result, go to https://www.kidney.org/professionals/ kdoqi/gfr%5Fcalculator BUN/CREAT RATIO NOT APPLICABLE 6 (calc) [facility] SODIUM 141 135 - 146 mmol/L [facility] POTASSIUM 4.3 3.5 - 5.3 mmol/L [facility] CHLORIDE 103 98 - 110 mmol/L [facility] CO2 21 20 - 32 mmol/L [facility] CALCIUM 9.6 8.6 - 10.3 mg/dL [facility] TOTAL PROTEIN 7.3 6.1 - 8.1 g/dL [facility] ALBUMIN 4.7 3.6 - 5.1 g/dL [facility] GLOBULIN 2.6 1.9 - 3.7 g/dL (calc) [facility] ALBUMIN/GLOBULI N RATIO 1.8 1.0 - 2.5 (calc) [facility] BILIRUBIN TOTAL 0.5 0.2 - 1.2 mg/dL [facility] ALKALINE PHOSPHATASE 66 36 - 130 U/L [facility] AST 19 10 - 40 U/L [facility] ALT 23 9 - 46 U/L [facility] Comment: Test Performed at: [facility] ??[phone] Sravan Mccain MD Blood 11/05/2022 11:0 3 AM CDT 11/06/2022 6:23 AM CDT Dionne Reis NP CHEMISTRY ORDERAB [facility] [phone] [facility] [address] * CBC WITH DIFFERENTIAL (11/05/2022 11:03 AM CDT) WBC 6.6 3.8 - 10.8 Thousand/u L [facility] RBC 5.60 4.20 - 5.80 Million/uL [facility] HEMOGLOBIN 15.2 13.2 - 17.1 g/dL [facility] HEMATOCRIT 45.5 38.5 - 50.0 % [facility] MCV 81.3 80.0 - 100.0 fL [facility] MCH 27.1 27.0 - 33.0 pg [facility] MCHC 33.4 32.0 - 36.0 g/dL [facility] RDW 13.2 11.0 - 15.0 % [facility] PLATELETS 270 140 - 400 Thousand/u L [facility] MPV 10.7 7.5 - 12.5 fL [facility] NEUTROPHIL ABSOLUTE 4,052 1,500 - 7,800 cells/uL [facility] LYMPHOCYTE ABSOLUTE 1,802 850 - 3,900 cells/uL [facility] MONOCYTE ABSOLUTE 495 200 - 950 cells/uL [facility] EOSINOPHIL ABSOLUTE 211 15 - 500 cells/uL [facility] BASOPHILS ABSOLUTE 40 0 - 200 cells/uL [facility] NEUTROPHIL 61.4 % [facility] LYMPHOCYTES 27.3 % [facility] MONOCYTE 7.5 % [facility] EOSINOPHILS 3.2 % [facility] BASOPHILS 0.6 % [facility] Comment: Test Performed at: [facility] [address] [place] ??[phone] Sravan Mccain MD Blood 11/05/2022 11:0 3 AM CDT 11/06/2022 6:23 AM CDT Dionne Reis NP HEMATOLOGY ORDERA BLES Performing Organization Address City/[facility]/ZIP Co de Phone Number [facility] [phone] [facility] [address] [place] [address] * TEST IN QUESTION (11/05/2022 11:03 AM CDT) REPORT/SPECIMEN COMMENT [facility] Comment: Whole blood, unspun or partially spun gel barrier tube was received more than 6 hours since collection. A false elevation of K, Phos and LD as well as a false decrease in glucose may occur due to prolonged contact with red cells. Test Performed at: [facility] [address] [place], [place] ??[phone] Sravan Mccain MD 11/05/2022 11:0 3 AM CDT 11/06/2022 6:23 AM CDT Dionne Reis NP CHEMISTRY ORDERAB [facility] [phone] [facility] [address] [place] [address] documented in this encounter Visit Diagnoses Diagnosis Screening for condition- Primary Screening for unspecified condition documented in this encounter Care Teams Fire Safety Manager Relationship Specialty Start Date End Date Lilibeth Low MD PCP - General Family Practice 12/28/17 documented as of this encounter
--- OUTSIDE RECORDS SUMMARY | 2024-06-18 16:00 | XMS_ITS | Encounter Summary ---
Author Organization [employer] [facility] Address [address] [place] [address] Care Team Providers Care Well Cleaner Name Role Phone Lilibeth Low MD Primary Care Provider +1- [phone] Encounter Details Date Type Department Care Team (Late st Contact Info) Description 06/23/2023 External Device Data [facility] ABSTRACTION Provider, Abstract [...] on filedocumented in this encounter Care Teams Well Cleaner Relationship Specialty Start Date End Date Lilibeth Low MD PCP - General Family Practice 12/28/17 documented as of this encounter
--- OUTSIDE RECORDS SUMMARY | 2024-06-18 16:00 | XMS_ITS | Encounter Summary ---
Author Organization [facility] Address [address] [place] [address] Phone Care Team Providers Care Ex Assistant/Program Director Name Role Phone Lilibeth Low MD Primary Care Provider Encounter Details Date Type Department Care Team (Late st Contact Info) Description 05/07/2021 Telephone [facility] Orthopaedic [facility] Advanced Medicine 6th [place] [address] [place] [address] Gretchen Nelson RMA Social History Tobacco Use Types Packs/Day Years Used Date Smoking Tobacco: Never Assessed Sex and Gender Information Value Date Recorded Sex Assigned at Not on file Legal Sex Male 9:11 AM INSPECTOR MACHINED PARTS Gender Identity Male 05/26/2021 9:18 AM INSPECTOR MACHINED PARTS Sexual Orientation Not on file documented as of this encounter Miscellaneous Notes * Telephone Encounter - Gretchen Nelson RMA - 05/07/2021 4:18 PM INSPECTOR MACHINED PARTS I spoke with Chaparro today regarding treatment for his lumbar spine. Reason for Appointment: deg changes lumbar spine. Left thigh pain Xrays: yes MRI: no CT: no Injections: no DEXA: no Pt: no Smoker: no Cardiac Disease: no Diabetes: no Pulmonary: no Ht/Wt: 6'2, 226lbs MISC history: none Litigation/WorkComp: no Prior Spine Surgery: no Symptoms: left thigh pain for 1 month. Patient stated that his symptoms have almost completely resolved with prednisone taper and flexeril. He is not interested in surgical discussion but would like ortho evaluation to establish care should his symptoms worsen again. Patient scheduled for appt to see Anat. He will work on getting xrays on disc to bring. ECTOR MACHINED PARTS documented in this encounter Plan of Treatment Not on file documented as of this encounter Visit Diagnoses Not on filedocumented in this encounter Care Teams Ex Assistant/Program Director Relationship Specialty Start Date End Date Lilibeth Low MD [address] [place] [phone] PCP - General Family Medicine 04/29/21 documented as of this encounter
--- OUTSIDE RECORDS SUMMARY | 2024-06-18 16:00 | XMS_ITS | Referral Summary ---
Author Organization [facility] Address [address] [place] [address] Care Team Providers Care Policy Writer Sales Name Role Phone Lilibeth Low MD Primary Care Provider Allergies No known active allergies Medications traMADoL (ULTRAM) 50 mg tablet Take by mouth every 8 (eight) hours as needed 04/24/2021 Active cyclobenzaprine (FLEXERIL) 5 mg tablet Take 5 mg by mouth 3 (three) times a day as needed for muscle spasms 04/17/2021 Active Active Problems No known active problems Social History Tobacco Use Types Packs/Day Years Used Date Smoking Tobacco: Never Smokeless Tobacco: Never Personal Safety Answer Date Recorded Getting School Help Needed Not on file 09/03 Sex and Gender Information Value Date Recorded Sex Assigned at Not on file Legal Sex Male 9:11 AM CONSULTING MANAGER Gender Identity Male 05/26/2021 9:18 AM CONSULTING MANAGER Sexual Orientation Not on file Last Filed Vital Signs Vital Sign Reading Time Taken Comments Blood Pressure - - Pulse - - Temperature - - Respiratory Rate - - Oxygen Saturation - - Inhaled Oxygen Concentration - - Weight 103 kg (227 lb) 05/26/2021 10:08 AM CONSULTING MANAGER Height 188 cm (6' 2 ) 05/26/2021 10:08 AM CONSULTING MANAGER Body Mass Index 29.15 05/26/2021 10:08 AM CONSULTING MANAGER Plan of Treatment Not on file Insurance [facility] Care Teams Policy Writer Sales Relationship Specialty Start Date End Date Lilibeth Low MD [address] [facility] [address] [place] [address] PCP - General Family Medicine 04/29/21
--- OUTSIDE RECORDS SUMMARY | 2024-06-18 16:00 | XMS_ITS | Encounter Summary ---
Author Organization [facility] Address [address] [place] [address] Care Team Providers Care Brand Lead Name Role Phone Lilibeth Low MD Primary Care Provider +1- [phone] Encounter Details Date Type Department Care Team (Late st Contact Info) Description 08/05/2023 External Device Data [facility] ABSTRACTION Provider, Abstract [...] on filedocumented in this encounter Care Teams Brand Lead Relationship Specialty Start Date End Date Lilibeth Low MD PCP - General Family Practice 12/28/17 documented as of this encounter
--- OUTSIDE RECORDS SUMMARY | 2024-06-18 16:00 | XMS_ITS | Encounter Summary ---
Author Organization [facility] Address [address] [place] [address] Phone Care Team Providers Care Lighter Captain Name Role Phone Lilibeth Low MD Primary Care Provider Reason for Referral * Diagnostic Imaging (Routine) - Closed Specialty Diagnoses / Procedures Referred By Contac t Referred To Contact Diagnoses Lumbar spine pain Procedures XR Spine Lumbar 4 or More Views Anat Miles NP [address] [place] [address] Phone: tel: fax: [facility] Referral ID Status Reason Start Date Expiration Date Visits Re quested Visits Authorized [id number] Closed 05/22/2021 06/21/2022 1 1 CH SUPERVISOR Reason for Visit * Reason Comments New Patient Encounter Details Date Type Department Care Team (Late st Contact Info) Description 05/26/2021 10:15 AM CHURCH SUPERVISOR Office Visit [facility] [address] [facility] [address]th [place] [address] [place] [address] Anat Miles NP [address] [place] [address] Lumbar spine pain (Primary Dx) Social History Tobacco Use Types Packs/Day Years Used Date Smoking Tobacco: Never Smokeless Tobacco: Never Sex and Gender Information Value Date Recorded Sex Assigned at Not on file Legal Sex Male 9:11 AM CHURCH SUPERVISOR Gender Identity Male 05/26/2021 9:18 AM CHURCH SUPERVISOR Sexual Orientation Not on file documented as of this encounter Last Filed Vital Signs Vital Sign Reading Time Taken Comments Blood Pressure - - Pulse - - Temperature - - Respiratory Rate - - Oxygen Saturation - - Inhaled Oxygen Concentration - - Weight 103 kg (227 lb) 05/26/2021 10:08 AM CHURCH SUPERVISOR Height 188 cm (6' 2 ) 05/26/2021 10:08 AM CHURCH SUPERVISOR Body Mass Index 29.15 05/26/2021 10:08 AM CHURCH SUPERVISOR documented in this encounter Patient Instructions * Patient Instructions* Bryan Oh CMA - 05/26/2021 10:15 AM CHURCH SUPERVISOR Thank you for your visit today. Dr. Alli Barraza/Anat Miles NP has recommended the followingtreatment: Physical Therapy Please let me know if you have any questions. INGRID Crain II Production Finisher to Dr. Alli Barraza/Anat Miles NP Department of Orthopedic Spine Surgery [address] [address] P: [phone] F: [phone] CH SUPERVISOR documented in this encounter Progress Notes * Anat Miles NP - 05/26/2021 10:15 AM CST New Patient Visit Chief Complaint Low back pain. History of Present Illness Patient is a 40-year-old male who presents the office today with primary complaints of low back pain. He states that the symptoms began in mid March 2021 after doing yard work. He felt some acute pain, and then several days later stepped sideways and felt even more pain in the same area. He states that the pain is slowly getting better. He describes the pain as aching in quality and mild in severity. It is worse with bending forward and better with exercise. He rates the pain as 4/10 in the office today. Approximately 90% of the pain is located in the back and the remaining 10% is in the legs. Of the leg pain, 100% is on the left. The pain is present in the left anterior and posterior thigh. He has noticed no weakness of the legs. He has noticed intermittent numbness of the left posterior thigh and occasionally of the left anterior thigh. Sitting is the worst position for the pain. Hecan not stand for 60+ minutes and can walk for 30-60 minutes before being limited by the pain. Lying down eases the pain. Bending forward increases the pain. He was seen and evaluated by his primary c are doctor and was prescribed prednisone, cyclobenzaprine, and tramadol. He states that the symptoms have been slowly getting better and the pain is now minimal. He is here today for recommendations on physical therapy and exercises to strengthen his spine given the degenerative disc disease found on his x-rays. Past Medical History History reviewed. No pertinent past medical history. Past Surgical History History reviewed. No pertinent surgical history. Review of Medications Current Outpatient Medications Medication Sig Dispense Refill ??? cyclobenzaprine (FLEXERIL) 5 mg tablet Take 5 mg by mouth 3 (three) times a day as needed for muscle spasms ??? traMADoL (ULTRAM) 50 mg tablet Take by mouth every 8 (eight) hours as needed No current facility-administered medications for this visit. Allergies No Known Allergies Social History The patient works as an operations section manager. He is . He has 2 children. He lives with his and kids. He does not smoke. He drinks alcohol socially. He denies illicit drug use. Social History Socioeconomic History ??? Marital status: Spouse name: Not on file ??? Number of children: Not on file ??? Years of education: Not on file ??? Highest education level: Not on file Occupational History ??? Not on file Tobacco Use ??? Smoking status: Never Smoker ??? Smokeless tobacco: Never Used Vaping Use ??? Vaping Use: Never used Substance and Sexual Activity ??? Alcohol use: Not on file ??? Drug use: Never ??? Sexual activity: Defer Other Topics Concern ??? Not on file Social History Narrative ??? Not on file Social Determinants of Health Financial Resource Strain: Not on file Food Insecurity: Not on file Transportation Needs: Not on file Physical Activity: Not on file Stress: Not on file Social Connections: Not on file Intimate Partner Violence: Not on file Housing Stability: Not on file Family History Family History Problem Relation Age of Onset ??? Cancer Mother ??? Diabetes Father ??? Heart disease Father ??? Hypertension Father Review of Systems A complete review of systems was obtained from the patient and is positive for: Back pain and headaches. It is otherwise negative. Physical Examination WEIGHT/BMI: Estimated body mass index is 29.15 kg/m?? as calculated from the following: Height as of this encounter: 188 cm (6' 2 ). Weight as of this encounter: 103 kg (227 lb). CONSTITUTIONAL: In general, patient is well appearing, is alert, and is in no acute distress. PSYCH: Mood and affect are appropriate. HEENT: Pupils equal and reactive to light. Neck symmetric without obvious masses. RESPIRATORY: Breathing is nonlabored with no audible wheezing. CARDIOVASCULAR/VASCULAR: Peripheral pulses are palpable and there is no evidence of peripheral edema. SKIN: No obvious rashes, ulcers, or open wounds. MUSCULOSKELETAL: The patient ambulates with a normal gait. He is able to stand on his toes, stand on his heels, and is able to stand on each leg independently. The patient is able to squat down and rise back up. He stands in normal coronal and sagittal alignment. Lumbar flexibility is normal. Internal and external rotation of the hips and flexion and extension of the knees do not exacerbate his symptoms. NEUROLOGIC: Motor strength examination demonstrates normal motor strength throughout the lower extremities on both static and dynamic testing. Sensation to light touch is intact. Reflexes are normal and symmetric throughout the lower extremities. Babinski sign is negative. There is no clonus. Straight leg raise test is negative. Review of Imaging/Studies I personally reviewed and interpreted the following imaging tests and studies. Plain radiographs ofthe lumbar spine obtained at the time of today's office visit were reviewed. These demonstrate milddegenerative disc disease most significant at L1-L2 and L5-S1. Impression/Diagnosis Patient is a 40-year-old male who presents to the office with acute low back pain and mild left lower extremity radicular symptoms. Treatment Plan I discussed with the patient my impression, the imaging findings, and treatment plan in detail witha focus on the etiology, natural history, and management of his symptoms. I discussed with the patient given his significant improvement in his symptoms, and only mild intermittent radicular symptoms, I would recommend continued non operative management of his symptoms. I recommended a course of physical therapy focused on lumbar stabilization and core strengthening. A prescription for this was provided. We also discussed [id number]-hru-zjytank modalities such as heat/ice, exercise, etc.. He was provided with rehab exercises in the office today. The patient can follow-up in my office on an as-needed basis. He is welcome to contact our office with any questions or concerns. Anat Miles DNP, TECHNICAL ANALYST, TABLET MACHINE OPERATOR-C Nurse Practitioner [facility] Division of Spine Surgery In collaborative practice with Dr. Alli Barraza Typing Pool Supervisor done by [employer]; variances and inaccuracies may occur. CH SUPERVISOR documented in this encounter Plan of Treatment Not on file documented as of this encounter Results * XR Spine Lumbar 4 or More Views (05/26/2021 9:37 AM CHURCH SUPERVISOR) Anatomical Region Laterality Modality Spine N/A Computed Radiogr aphy 05/26/2021 9:44 AM CHURCH SUPERVISOR Impressions 05/26/2021 9:44 AM CHURCH SUPERVISOR 1. Multilevel degenerative disc disease worst and mild at L1-L2. Electronically signed by: Rosendo Anthony MD Narrative 05/26/2021 9:44 AM CHURCH SUPERVISOR EXAMINATION: XR SPINE LUMBAR 4 OR MORE VIEWS HISTORY: ??Low back pain. FINDINGS: 5 views of the lumbar spine with bending are submitted for interpretation without comparison. There is multilevel degenerative disc disease worst and mild at L1-L2. Sagittal alignment is normal in neutral position with no abnormal motion on bending. Vertebral body heights are maintained. Procedure Note Rosendo Anthony MD - 05/26/2021 EXAMINATION: XR SPINE LUMBAR 4 OR MORE VIEWS HISTORY: Low back pain. FINDINGS: 5 views of the lumbar spine with bending are submitted for interpretation without comparison. There is multilevel degenerative disc disease worst and mild at L1-L2. Sagittal alignment is normal in neutral position with no abnormal motion on bending. Vertebral body heights are maintained. IMPRESSION: 1. Multilevel degenerative disc disease worst and mild at L1-L2. Electronically signed by: Rosendo Anthony MD Anat Miles RING MAKER IMG XR PROCEDURES Lucia l Result documented in this encounter Visit Diagnoses Diagnosis Lumbar spine pain- Primary Lumbar spine pain documented in this encounter Historical Medications * This list may reflect changes made after this encounter. cyclobenzaprine (FLEXERIL) 5 mg tablet Take 5 mg by mouth 3 (three) times a day as needed for muscle spasms 04/17/2021 traMADoL (ULTRAM) 50 mg tablet Take by mouth every 8 (eight) hours as needed 04/24/2021 added in this encounter Care Teams Lighter Captain Relationship Specialty Start Date End Date Lilibeth Low MD [address] [place] [address] PCP - General Family Medicine 04/29/21 documented as of this encounter
--- OUTSIDE RECORDS SUMMARY | 2024-06-18 16:00 | XMS_ITS | Encounter Summary ---
Author Organization [facility] Address [address] [place] [address] Care Team Providers Care Parcel Wrapper Name Role Phone Lilibeth Low MD Primary Care Provider +1- [phone] Reason for Visit * Reason Onset Date Comments Appointment Verification 12/09/2021 Encounter Details Date Type Department Care Team (Late st Contact Info) Description 12/09/2021 Telephone [facility] at Work [employer] [place] [address] [place] [address] Lilibeth Low MD [address] [facility] [address] [place] [address] Appointment Verification Social History Tobacco Use Types Packs/Day Years Used Date Smoking Tobacco: Never Assessed Sex and Gender Information Value Date Recorded Sex Assigned at Not on file Gender Identity Not on file Sexual Orientation Not on file documented as of this encounter Miscellaneous Notes * Telephone Encounter - Linda Miles - 12/09/2021 1:34 PM CDT LVM with a reminder for patients upcoming appointment on 12/10/21 at 10:20 am at the [facility]. documented in this encounter Plan of Treatment Not on file documented as of this encounter Visit Diagnoses Not on filedocumented in this encounter Care Teams Parcel Wrapper Relationship Specialty Start Date End Date Lilibeth Low MD PCP - General Family Practice 12/28/17 documented as of this encounter
--- OUTSIDE RECORDS SUMMARY | 2024-06-18 16:00 | XMS_ITS | Encounter Summary ---
Author Organization [facility] Address [address] [place] [address] Care Team Providers Care Stonework Supervisor Name Role Phone Lilibeth Low MD Primary Care Provider +1- [phone] Reason for Visit * Reason Comments Labs Only Encounter Details Date Type Department Care Team (Latest Contact Info) Description 12/10/2021 10:20 AM CDT Clinical Support [facility] [employer] [place] [address] [address] Encounter for screening, unspecified (Primary [...] Sign Reading Time Taken Comments Blood Pressure 142/84 12/10/2021 10:21 AM CDT Pulse - - Temperature - - Respiratory Rate - - Oxygen Saturation - - Inhaled Oxygen Concentration - - Weight 108.9 kg (240 lb) 12/10/2021 10:21 AM CDT Height 190.5 cm (6' 3 ) 12/10/2021 10:21 AM CDT Body Mass Index 30 12/10/2021 10:21 AM CDT documented in this encounter Progress Notes * Tessa Gonsales - 12/10/2021 10:24 AM CDT Pt came in for annual wellness screening finger stick, left hand 2nd digit, pt tolerate well. INGRID Barber Recommended a follow up to discuss, pt states he will take results to his PCP. Cholesterol handout given to pt as well. documented in this encounter Plan of Treatment Not on file documented as of this encounter Procedures Procedure Name Priority Date/Time Associated Diagnosis Comments POC LIPID PANEL AND GLUCOSE Routine 12/10/2021 10:24 AM CDT documented in this encounter Results * (ABNORMAL) POC LIPID PANEL AND GLUCOSE (12/10/2021 10:24 AM CDT) CHOLESTEROL POC 221(A) 200 mg/dL [facility] HDL POC 39(A) 40 - 59 mg/dL [facility] [place] LDL CALCULATED POC 163(A) 100 mg/dL [facility] TRIGLYCERIDES POC 93 150 mg/dL [facility] NON-HDL CHOLESTEROL POC 0 130 mg/dL [facility] Comment:NA CHOL/HDL RATIO POC 5.6 [facility] GLUCOSE POC 87 65 - 99 mg/dL [facility] Blood 12/10/2021 10:2 4 AM CDT Abstract Provider POINT OF CARE TESTIN G COM [facility] CLIA# [id number] [address] [place] [address] documented in this encounter Visit Diagnoses Diagnosis Encounter for screening, unspecified- Primary documented in this encounter Care Teams Stonework Supervisor Relationship Specialty Start Date End Date Lilibeth Low MD PCP - General Family Practice 12/28/17 documented as of this encounter
--- OUTSIDE RECORDS SUMMARY | 2024-06-18 16:00 | XMS_ITS | Encounter Summary ---
Author Organization [facility] Address [address] [place] [address] Care Team Providers Care Store Planner Name Role Phone Lilibeth Low MD Primary Care Provider Reason for Referral * Diagnostic Imaging (Routine) - Closed Specialty Diagnoses / Procedures Referred By Contac t Referred To Contact Diagnoses Lumbar spine pain Procedures XR Spine Lumbar 4 or More Views Anat Miles NP [address] [facility] [address] [place] [address] Phone: tel: fax: [facility] Referral ID Status Reason Start Date Expiration Date Visits Re quested Visits Authorized [id number] Closed 05/22/2021 06/21/2022 1 1 CLEANER Reason for Visit * Diagnostic Imaging (Routine) - Closed Specialty Diagnoses / Procedures Referred By Contac t Referred To Contact Diagnoses Lumbar spine pain Procedures XR Spine Lumbar 4 or More Views Anat Miles NP [address] [facility] [address] [place] [address] Phone: tel: fax: [facility] Referral ID Status Reason Start Date Expiration Date Visits Re quested Visits Authorized [id number] Closed 05/22/2021 06/21/2022 1 1 Encounter Details Date Type Department Care Team (Latest Contact Info) Description 05/26/2021 9:17 AM SHOE CLEANER - 05/26/2021 11:59 PM SHOE CLEANER Hospital Encounter [facility] [address] [place] [address] Anat Miles, CERTIFIED MASTER SAFECRACKER [address] [facility] [address] [place] [address] Lumbar spine pain Discharge Disposition: Discharge to home or self care Social History Tobacco Use Types Packs/Day Years Used Date Smoking Tobacco: Never Smokeless Tobacco: Never Sex and Gender Information Value Date Recorded Sex Assigned at Not on file Legal Sex Male 9:11 AM SHOE CLEANER Gender Identity Male 05/26/2021 9:18 AM SHOE CLEANER Sexual Orientation Not on file documented as of this encounter Medications at Time of Discharge cyclobenzaprine (FLEXERIL) 5 mg tablet Take 5 mg by mouth 3 (three) times a day as needed for muscle spasms 04/17/2021 traMADoL (ULTRAM) 50 mg tablet Take by mouth every 8 (eight) hours as needed 04/24/2021 documented as of this encounter Discharge Disposition Disposition Code Departure Means Destination Discharge to home or self care documented in this encounter Plan of Treatment Not on file documented as of this encounter Procedures Procedure Name Priority Date/Time Associated Diagnosis Comments XR SPINE LUMBAR COMPLETE 4 OR MORE VIEWS Schedule Routine, Read Routine (OP Routine) 05/26/2021 9:37 AM SHOE CLEANER Lumbar spine pain documented in this encounter Results * XR Spine Lumbar 4 or More Views (05/26/2021 9:37 AM SHOE CLEANER) Anatomical Region Laterality Modality Spine N/A Computed Radiogr aphy 05/26/2021 9:44 AM SHOE CLEANER Impressions 05/26/2021 9:44 AM SHOE CLEANER 1. Multilevel degenerative disc disease worst and mild at L1-L2. Electronically signed by: Rosendo Anthony MD Narrative 05/26/2021 9:44 AM SHOE CLEANER EXAMINATION: XR SPINE LUMBAR 4 OR MORE [...] signed by: Rosendo Anthony MD Anat Miles CERTIFIED MASTER SAFECRACKER IMG XR PROCEDURES Lucia l Result documented in this encounter Visit Diagnoses Diagnosis Lumbar spine pain documented in this encounter Care Teams Store Planner Relationship Specialty Start Date End Date Lilibeth Low MD [address] [facility] [address] [place] [address] PCP - General Family Medicine 04/29/21 documented as of this encounter
--- OUTSIDE RECORDS SUMMARY | 2024-06-18 16:00 | XMS_ITS | Encounter Summary ---
Author Organization [facility] Address [address] [place] [address] Care Team Providers Care Feed Handler Name Role Phone Lilibeth Low MD Primary Care Provider +1- [phone] Reason for Visit * Reason Comments Labs Only Encounter Details Date Type Department Care Team (Late st Contact Info) Description 01/25/2019 9:15 AM CDT Office Visit [facility] [employer] [address] [place] [place] [address] Screening for condition (Primary Dx) Social History Tobacco Use Types Packs/Day Years Used Date Smoking Tobacco: Never Assessed Sex and Gender Information Value Date Recorded Sex Assigned at Not on file Gender Identity Not on file Sexual Orientation Not on file documented as of this encounter Last Filed Vital Signs Vital Sign Reading Time Taken Comments Blood Pressure 122/76 01/25/2019 9:11 AM CDT Pulse - - Temperature - - Respiratory Rate - - Oxygen Saturation - - Inhaled Oxygen Concentration - - Weight 98.4 kg (217 lb) 01/25/2019 9:11 AM CDT Height 188 cm (6' 2 ) 01/25/2019 9:11 AM CDT Body Mass Index 27.86 01/25/2019 9:11 AM CDT documented in this encounter Progress Notes * Tessa Bae - 01/25/2019 9:16 AM CDT Pt came in for annual wellness screening finger stick, right hand 2nd digit, pt tolerate well. EDMUNDO Grubbs Recommended follow up for elevated LDL, pt states he is doing the keto diet and that could be causing this, he will try to do healthy choices on the cholesterol handout given to pt . documented in this encounter Plan of Treatment Not on file documented as of this encounter Procedures Procedure Name Priority Date/Time Associated Diagnosis Comments GLUCOSE LEVEL Routine 01/25/2019 LIPID PANEL Routine 01/25/2019 documented in this encounter Results * GLUCOSE LEVEL (01/25/2019) GLUCOSE 90 74 - 99 mg/dL [facility] Blood 01/25/2019 Abstract Provider CHEMISTRY ORDERABLES [facility] CLIA# [id number] [address] [place] [address] * (ABNORMAL) LIPID PANEL (01/25/2019) CHOLESTEROL 212(A) 200 mg/dL [facility] TRIGLYCERIDE 75 150 mg/dL [facility] HDL 42 40 - 59 mg/dL [facility] LDL CALCULATED 155(A) 100 mg/dL [facility] TC/HDL POC 5.0(A) 3.43 - 4.97 Ratio [facility] Blood 01/25/2019 Abstract Provider CHEMISTRY ORDERABLES [facility] CLIA# [id number] [address] [place] [address] documented in this encounter Visit Diagnoses Diagnosis Screening for condition- Primary Screening for unspecified condition documented in this encounter Care Teams Feed Handler Relationship Specialty Start Date End Date Lilibeth Low MD PCP - General Family Practice 12/28/17 documented as of this encounter
--- OUTSIDE RECORDS SUMMARY | 2024-06-18 16:21 | XMS_ITS | Encounter Summary ---
Author Organization [facility] Address [facility] [place] [address] Care Team Providers Care Loom Mechanic Name Role Phone Unavailable Primary Care Provider Unavailabl e Reason for Visit * Reason Comments Sore Throat Encounter Details Date Type Department Care Team ([facility] st Contact Info) Description 07/02/2017 3:40 PM RADIATION ONCOLOGIST Office Visit [facility] AT [address] [address] Provider, [facility] Acute pharyngitis, unspecified etiology (Primary Dx) [...] Comments Blood Pressure 114/80 07/02/2017 3:45 PM RADIATION ONCOLOGIST Pulse 74 07/02/2017 3:45 PM RADIATION ONCOLOGIST Temperature 36.8 ??C (98.3 ??F) 07/02/2017 3:45 PM CS T Respiratory Rate 16 07/02/2017 3:45 PM RADIATION ONCOLOGIST Oxygen Saturation 98% 07/02/2017 3:45 PM RADIATION ONCOLOGIST Inhaled Oxygen Concentration - - Weight 108.4 kg (239 lb) 07/02/2017 3:45 PM RADIATION ONCOLOGIST Height 188 cm (6' 2 ) 07/02/2017 3:45 PM RADIATION ONCOLOGIST Body Mass Index 30.69 07/02/2017 3:45 PM RADIATION ONCOLOGIST documented in this encounter Patient Instructions * Patient Instructions* Lu Reed APRN-CORNELL - 07/02/2017 4:04 PM RADIATION ONCOLOGIST Pharyngitis WHAT YOU NEED TO KNOW: Pharyngitis, [...] are unavailable, use an alcohol based hand punch press operator helper. Follow up with your healthcare provider as directed: Write down your questions so you remember to ask them during your visits. ?? 2017 [email or web address] Information is for End User's use only and may not be sold, redistributed or otherwise used for commercial purposes. All illustrations and images included in CareNotes?? are the copyrighted property of [employer]. or [employer]. The above information is an activity aide only. It is not intended as medical advice for individual conditions or treatments. Talk to your doctor, nurse or pharmacist before following any medical regimen to see if it is safe and effective for you. ATION ONCOLOGIST documented in this encounter Progress Notes * [...] of Onset ??? Coronary Artery Disease Father [place] x 2; CABG No current outpatient prescriptions [...] Strep A INTERNAL CONTROL Present Lot Number [id number] Expiration Date 12/13/2018 ATION ONCOLOGIST documented in this encounter Plan of Treatment Not on file documented as of this encounter Procedures Procedure Name Priority Date/Time Associated Diagnosis Comments STREP A SCREEN - POINT OF CARE (AMB) STL Routine 07/02/2017 4:06 PM RADIATION ONCOLOGIST Acute pharyngitis, unspecified etiology documented in this encounter Results * STREP A SCREEN (07/02/2017 4:06 PM RADIATION ONCOLOGIST) Strep A Rapid POCT Negative Negative Strep A Internal Control Present Lot # [id number] Expiration Date 12/13/2018 Throat ENTIRE THROAT (SURFACE REGION OF NECK) / Unknown 07/02/2017 4:06 PM RADIATION ONCOLOGIST [facility] - POINT OF CARE ORDERABLES documented in this encounter Visit Diagnoses Diagnosis Acute pharyngitis, unspecified etiology- Primary documented in this encounter
--- OUTSIDE RECORDS SUMMARY | 2024-06-18 16:21 | XMS_ITS | Patient Health Summary ---
Author Organization [facility] Address [address] [place] [address] Care Team Providers Care Concessions Manager Name Role Phone Unavailable Primary Care Provider Unavailabl e Note from [facility],non-owned Affiliates and Associated Physician Practices is amultiple site organization consisting of ambulatory clinics and hospital sitesin [place], [place], [place] and [place]. This disclosure is being madepursuant to the Care Everywhere program and may not contain all information available regarding this patient. Last updated 18.[facility] Allergies No known active allergies Medications Be [...] Comments Blood Pressure 114/80 07/02/2017 3:45 PM MAKEUP INSTRUCTOR Pulse 74 07/02/2017 3:45 PM MAKEUP INSTRUCTOR Temperature 36.8 ??C (98.3 ??F) 07/02/2017 3:45 PM CS T Respiratory Rate 16 07/02/2017 3:45 PM MAKEUP INSTRUCTOR Oxygen Saturation 98% 07/02/2017 3:45 PM MAKEUP INSTRUCTOR Inhaled Oxygen Concentration - - Weight 108.4 kg (239 lb) 07/02/2017 3:45 PM MAKEUP INSTRUCTOR Height 188 cm (6' 2 ) 07/02/2017 3:45 PM MAKEUP INSTRUCTOR Body Mass Index 30.69 07/02/2017 3:45 PM MAKEUP INSTRUCTOR Procedures * STREP A SCREEN - POINT OF CARE (AMB) STL(Performed 07/02/2017) Performed for Acute pharyngitis, unspecified etiology Results * STREP A SCREEN (07/02/2017 4:06 PM MAKEUP INSTRUCTOR) Strep A Rapid POCT Negative Negative Strep A Internal Control Present Lot # [id number] Expiration Date 12/13/2018 Throat ENTIRE THROAT (SURFACE REGION OF NECK) / Unknown 07/02/2017 4:06 PM MAKEUP INSTRUCTOR Lu Reed NURSING HOME ASSISTANT ADMINISTRATOR-CONDOMINIUM PROPERTY MANAGER LAB - POINT OF CARE ORDERABLES
--- OUTSIDE RECORDS SUMMARY | 2024-06-18 16:21 | XMS_ITS | Clinical Summary ---
Author Organization [facility] Address [address] [place] [address] Care Team Providers Care Applications Specialist Name Role Phone Lilibeth Low MD [...] on file Legal Sex Male 9:11 AM YARDER PUNCHER Gender Identity Male 05/26/2021 9:18 AM YARDER PUNCHER Sexual Orientation Not on file Obstetrics History Last Filed Vital Signs Vital Sign Reading Time Taken Comments Blood Pressure - - Pulse - - Temperature - - Respiratory Rate - - Oxygen Saturation - - Inhaled Oxygen Concentration - - Weight 103 kg (227 lb) 05/26/2021 10:08 AM YARDER PUNCHER Height 188 cm (6' 2 ) 05/26/2021 10:08 AM YARDER PUNCHER Body Mass Index 29.15 05/26/2021 10:08 AM YARDER PUNCHER Plan of Treatment Not on file Insurance R [facility] H[facility]/PPO Address: [facility] [address] [place] [address] Care Teams Applications Specialist Relationship Specialty Start Date End Date Lilibeth Low MD [address] [facility] [address] [place] [address] PCP - General Family Medicine 04/29/21
--- OUTSIDE RECORDS SUMMARY | 2024-06-18 16:21 | XMS_ITS | Clinical Summary ---
Author Organization [facility] [employer] [place] Address [address] [place] [address] [place] [address] Care Team Providers Care It Project Manager Name Role Phone Lilibeth Low MD Primary Care Provider +1- [phone] Medications No known medications Active Problems No [...] age to complete this topic Care Teams It Project Manager Relationship Specialty Start Date End Date Lilibeth Low MD PCP - General Family Practice 12/28/17
--- OUTSIDE RECORDS SUMMARY | 2024-06-18 16:21 | XMS_ITS | Encounter Summary ---
Author Organization [facility] Address [address] [place] [address] Care Team Providers Care Branch Sales Manager Name Role Phone Lilibeth Low MD Primary Care Provider +1- [phone] Reason for Visit * Reason Comments Labs Only Encounter Details Date Type Department Care Team (Late st Contact Info) Description 01/25/2019 9:15 AM CDT Office Visit [facility] [employer] [address] [place] [id number] Screening for condition (Primary Dx) Social History [...] (01/25/2019) GLUCOSE 90 74 - 99 mg/dL [facility] Blood 01/25/2019 Abstract Provider CHEMISTRY ORDERABLES [facility] CLIA# [id number] [address] [place] [address] * (ABNORMAL) LIPID PANEL (01/25/2019) CHOLESTEROL 212(A) 200 mg/dL [facility] TRIGLYCERIDE 75 150 mg/dL [facility] HDL 42 40 - 59 mg/dL [facility] LDL CALCULATED 155(A) 100 mg/dL [facility] TC/HDL POC 5.0(A) 3.43 - 4.97 Ratio [facility] Blood 01/25/2019 Abstract Provider CHEMISTRY ORDERABLES [facility] CLIA# [id number] [address] [place] [place] [id number] documented in this encounter Visit Diagnoses Diagnosis Screening for condition- Primary Screening for unspecified condition documented in this encounter Care Teams Branch Sales Manager Relationship Specialty Start Date End Date Lilibeth Low MD PCP - General Family Practice 12/28/17 documented as of this encounter
--- OUTSIDE RECORDS SUMMARY | 2024-06-18 16:21 | XMS_ITS | Referral Summary ---
Author Organization [facility] Address [address] [place] [address] Care Team Providers Care Electronic Systems Technician Name Role Phone Unavailable Primary Care Provider Unavailabl e Source Comments [facility],non-owned Affiliates and Associated Physician Practices is amultiple site organization consisting of ambulatory clinics and hospital sitesin [place], [place], [place] and [place]. This disclosure is being madepursuant to the Care Everywhere program and may not contain all information available regarding this patient. Last updated 18.[facility] Allergies No known active allergies Medications Be [...] Comments Blood Pressure 114/80 07/02/2017 3:45 PM [employer] Pulse 74 07/02/2017 3:45 PM [employer] Temperature 36.8 ??C (98.3 ??F) 07/02/2017 3:45 PM CS T Respiratory Rate 16 07/02/2017 3:45 PM [employer] Oxygen Saturation 98% 07/02/2017 3:45 PM [employer] Inhaled Oxygen Concentration - - Weight 108.4 kg (239 lb) 07/02/2017 3:45 PM [employer] Height 188 cm (6' 2 ) 07/02/2017 3:45 PM [employer] Body Mass Index 30.69 07/02/2017 3:45 PM [employer] Plan of Treatment Not on file
--- OUTSIDE RECORDS SUMMARY | 2024-06-18 16:21 | XMS_ITS | Encounter Summary ---
Author Organization [facility] Address [address] [place] [address] Care Team Providers Care Wig Sales Consultant Name Role Phone Lilibeth Low MD Primary Care Provider +1- [phone] Reason for Visit * Reason Comments Labs Only Encounter Details Date Type Department Care Team (Late st Contact Info) Description 11/05/2022 11:00 AM CDT Office Visit [facility] [employer] [place] [address] [facility] [address] Screening for condition (Primary Dx) [...] [facility] Comment: Test Performed at: [email or web address] [address] [place] ??[address] Sravan Mccain MD Blood 11/05/2022 11:0 3 AM CDT 11/06/2022 6:23 AM CDT Dionne Reis NP CHEMISTRY ORDERAB LES [facility] [phone] [facility] [address] [place] [address] * (ABNORMAL) LIPID PANEL (11/05/2022 11:03 AM CDT) CHOLESTEROL 308(H) <200 mg/dL [email or web address] [place] HDL 58 > OR = 40 mg/dL [facility] TRIGLYCERIDE 146 <150 mg/dL [email or web address] [place] LDL CALCULATED 220(H) mg/dL (calc) [email or web address] [place] Comment: LDL-C levels > or = 190 [...] about testing for familial hypercholesterolemia, please call [facility] at [email or web address]. Francisco T, et al. J National Lipid Association Recommendations for Patient-Centered Management of Dyslipidemia: Part 1 Journal of Clinical Lipidology 2015;9(2), 129-169. Clover Milian. et al. (2014). Homozygous familial hypercholesterolaemia: new insights and guidance for clinicians to improve detection and clinical management. Heart Journal, 35(32), 2756-9517. Reference range: <100 Desirable range <100 mg/dL for primary prevention; ?? <70 mg/dL for patients with CHD or diabetic patients with > or = 2 CHD risk factors. LDL-C is now calculated using the Joshua-Mavis calculation, which is a validated novel method providing better accuracy than the Friedewald equation in the estimation of LDL-C. Joshua BROWN et al. CANDICE. 2013;310(19): 9097-8863 (http://education.QRuso/faq/HJK421) CHOL/HDL RATIO 5.3(H) <5.0 (calc) [email or web address] [place] TOTAL NON-HDL CHOL(LDL+VLDL) 250(H) <130 mg/dL (calc) [email or web address] [place] Comment: Non-HDL level > or = 220 [...] considered a therapeutic option. Test Performed at: [facility] [address] [place] ??[address] Sravan Mccain MD Blood 11/05/2022 11:0 3 AM CDT 11/06/2022 6:23 AM CDT Dionne Chante Reis NP CHEMISTRY ORDERAB LES [facility] [phone] [email or web address] [address] [place] [address] * COMPREHENSIVE METABOLIC PANEL (11/05/2022 11:03 AM CDT) GLUCOSE 71 65 - 99 mg/dL [facility] Comment: ? Fasting reference interval BUN 17 7 - 25 mg/dL [facility] [place] CREATININE 0.94 0.60 - 1.29 mg/dL [facility] [place] GFR 103 > OR = 60 mL/min/1. 73m2 [facility] Comment: The eGFR is based on the CKD-EPI 2020 equation. To calculate the new eGFR from a previous Creatinine or Cystatin C result, go to https://www.kidney.org/professionals/ kdoqi/gfr%5Fcalculator BUN/CREAT RATIO NOT APPLICABLE 6 (calc) [email or web address] [place] SODIUM 141 135 - 146 mmol/L [email or web address] [place] POTASSIUM 4.3 3.5 - 5.3 mmol/L [facility] [place] CHLORIDE 103 98 - 110 mmol/L [email or web address] [place] CO2 21 20 - 32 mmol/L [email or web address] [place] CALCIUM 9.6 8.6 - 10.3 mg/dL [facility] TOTAL PROTEIN 7.3 6.1 - 8.1 g/dL [facility] ALBUMIN 4.7 3.6 - 5.1 g/dL [facility] GLOBULIN 2.6 1.9 - 3.7 g/dL (calc) [facility] ALBUMIN/GLOBULI N RATIO 1.8 1.0 - 2.5 (calc) [facility] BILIRUBIN TOTAL 0.5 0.2 - 1.2 mg/dL [facility] ALKALINE PHOSPHATASE 66 36 - 130 U/L [facility] AST 19 10 - 40 U/L [facility] ALT 23 9 - 46 U/L [facility] Comment: Test Performed at: [email or web address] ??[address] Sravan Mccain MD Blood 11/05/2022 11:0 3 AM CDT 11/06/2022 6:23 AM CDT Dionne Reis NP CHEMISTRY ORDERAB LES [facility] [phone] [facility] [address] * CBC WITH DIFFERENTIAL (11/05/2022 11:03 AM [...] [facility] Comment: Test Performed at: [email or web address] [place] [address] [place], [place] ??[address] Sravan Mccain MD Blood 11/05/2022 11:0 3 AM CDT 11/06/2022 6:23 AM CDT Dionne Reis NP HEMATOLOGY ORDERA BLES Performing Organization Address City/[facility]/ZIP Co de Phone Number [facility] [phone] [facility] [address] [place] [address] * TEST IN QUESTION (11/05/2022 11:03 AM CDT) REPORT/SPECIMEN COMMENT [facility] Comment: Whole blood, unspun or partially spun gel barrier tube was received more than 6 hours since collection. A false elevation of K, Phos and LD as well as a false decrease in glucose may occur due to prolonged contact with red cells. Test Performed at: [email or web address] [address] [place], [place] ??[address] Sravan Mccain MD 11/05/2022 11:0 3 AM CDT 11/06/2022 6:23 AM CDT Dionne Reis NP CHEMISTRY ORDERAB LES [facility] [phone] [facility] [address] [place] [address] documented in this encounter Visit Diagnoses Diagnosis Screening for condition- Primary Screening for unspecified condition documented in this encounter Care Teams Wig Sales Consultant Relationship Specialty Start Date End Date Lilibeth Low MD PCP - General Family Practice 12/28/17 documented as of this encounter
--- OUTSIDE RECORDS SUMMARY | 2024-06-18 16:21 | XMS_ITS | Encounter Summary ---
Author Organization [place] [facility] Address [address] [place] [address] Phone Care Team Providers Care Information Officer Name Role Phone Lilibeth Low MD Primary Care Provider Reason for Referral * Diagnostic Imaging (Routine) - Closed Specialty Diagnoses / Procedures Referred By Contac t Referred To Contact Diagnoses Lumbar spine pain Procedures XR Spine Lumbar 4 or More Views Anat Miles NP [address] [place] [address] Phone: tel: fax: [facility] Referral ID Status Reason Start Date Expiration Date Visits Re quested Visits Authorized [id number] Closed 05/22/2021 06/21/2022 1 1 S SERVICE MANAGER Reason for Visit * Reason Comments New Patient Encounter Details Date Type Department Care Team (Late st Contact Info) Description 05/26/2021 10:15 AM SALES SERVICE MANAGER Office Visit [facility] Orthopaedic Surgery [address] [facility] 12[address] [place] [address] [place] [address] Anat Miles NP [address] [place] [address] Lumbar spine pain (Primary Dx) Social History Tobacco Use Types Packs/Day Years Used Date Smoking Tobacco: Never Smokeless Tobacco: Never Sex and Gender Information Value Date Recorded Sex Assigned at Not on file Legal Sex Male 9:11 AM SALES SERVICE MANAGER Gender Identity Male 05/26/2021 9:18 AM SALES SERVICE MANAGER Sexual Orientation Not on file documented as of this encounter Last Filed Vital Signs Vital Sign Reading Time Taken Comments Blood Pressure - - Pulse - - Temperature - - Respiratory Rate - - Oxygen Saturation - - Inhaled Oxygen Concentration - - Weight 103 kg (227 lb) 05/26/2021 10:08 AM SALES SERVICE MANAGER Height 188 cm (6' 2 ) 05/26/2021 10:08 AM SALES SERVICE MANAGER Body Mass Index 29.15 05/26/2021 10:08 AM SALES SERVICE MANAGER documented in this encounter Patient Instructions * Patient Instructions* Bryan Oh CMA - 05/26/2021 10:15 AM SALES SERVICE MANAGER Thank you for your visit today. Dr. Alli Barraza/Anat Miles NP has recommended the followingtreatment: Physical Therapy Please let me know if you have any questions. INGRID Crain II Professional Fighter to Dr. Alli Barraza/Anat Miles NP Department of Orthopedic Spine Surgery [address] [address] P: [phone] F: [phone] S SERVICE MANAGER documented in this encounter Progress Notes * [...] Social History The patient works as an marketing operations analyst. He is . He has 2 children. [...] for this was provided. We also discussed uufa-jov-pcitcsp modalities such as heat/ice, exercise, etc.. He was provided with rehab exercises in the office today. The patient can follow-up in my office on an as-needed basis. He is welcome to contact our office with any questions or concerns. Anat Miles DNP, STITCHING DEPARTMENT SUPERVISOR, SUPERVISOR ROCKET [employer]OPELLANT [employer]ANT-C Nurse Practitioner [facility] Orthopedics Division of Spine Surgery In collaborative practice with Dr. Alli Barraza Sign Poster done by [employer]; variances and inaccuracies may occur. S SERVICE MANAGER documented in this encounter Plan of Treatment Not on file documented as of this encounter Results * XR Spine Lumbar 4 or More Views (05/26/2021 9:37 AM SALES SERVICE MANAGER) Anatomical Region Laterality Modality Spine N/A Computed Radiogr aphy 05/26/2021 9:44 AM SALES SERVICE MANAGER Impressions 05/26/2021 9:44 AM SALES SERVICE MANAGER 1. Multilevel degenerative disc disease worst and mild at L1-L2. Electronically signed by: Rosendo Anthony MD Narrative 05/26/2021 9:44 AM SALES SERVICE MANAGER EXAMINATION: XR SPINE LUMBAR 4 OR MORE [...] signed by: Rosendo Anthony MD Anat Miles CAFE ASSOCIATE IMG XR PROCEDURES Lucia l Result documented [...] 04/24/2021 added in this encounter Care Teams Information Officer Relationship Specialty Start Date End Date Lilibeth Low MD [address] [place] [address] PCP - General Family Medicine 04/29/21 documented as of this encounter
--- OUTSIDE RECORDS SUMMARY | 2024-06-18 16:21 | XMS_ITS | Referral Summary ---
Author Organization [facility] Address [address] [place] [address] Care Team Providers Care Artificial Breeding Technician Name Role Phone Lilibeth Low MD Primary [...] on file Legal Sex Male 9:11 AM BACKEND TESTER Gender Identity Male 05/26/2021 9:18 AM BACKEND TESTER Sexual Orientation Not on file Last Filed Vital Signs Vital Sign Reading Time Taken Comments Blood Pressure - - Pulse - - Temperature - - Respiratory Rate - - Oxygen Saturation - - Inhaled Oxygen Concentration - - Weight 103 kg (227 lb) 05/26/2021 10:08 AM BACKEND TESTER Height 188 cm (6' 2 ) 05/26/2021 10:08 AM BACKEND TESTER Body Mass Index 29.15 05/26/2021 10:08 AM BACKEND TESTER Plan of Treatment Not on file Insurance [facility] Care Teams Artificial Breeding Technician Relationship Specialty Start Date End Date Lilibeth Low MD [address] [facility] [address] [place] [address] PCP - General Family Medicine 04/29/21
--- OUTSIDE RECORDS SUMMARY | 2024-06-18 16:21 | XMS_ITS | Encounter Summary ---
Author Organization [facility] Address [address] [place] [address] Care Team Providers Care Atomizer Assembler Name Role Phone Lilibeth Low MD Primary Care Provider +1- [phone] Encounter Details Date Type Department Care Team [...] on filedocumented in this encounter Care Teams Atomizer Assembler Relationship Specialty Start Date End Date Lilibeth Low MD PCP - General Family Practice 12/28/17 documented as of this encounter
--- OUTSIDE RECORDS SUMMARY | 2024-06-18 16:21 | XMS_ITS | Encounter Summary ---
Author Organization [facility] Address [address] [place] [address] Care Team Providers Care Bobbin Cleaner Name Role Phone Lliibeth Low MD Primary Care Provider +1- [phone] Reason for Visit * Reason Comments Labs Only Annual wellness scre ening Encounter Details Date Type Department Care Team (Late st Contact Info) Description 12/28/2017 7:00 AM CDT Office Visit [facility] [email or web address] [address] [place] [address] Screening for condition (Primary Dx) Social History [...] AM CDT Performed at: ??01 - [facility] [address] ??[id number] Hogshead Stock Clerk: Reinaldo Schmitz PhD, Phone: ??[phone] Marie Silverman NP CHEMISTRY ORDER TESS [facility] [...] 8:49 AM CDT Performed at: ??01 - [facility], [place], [place] ??[id number] Hogshead Stock Clerk: Reinaldo Schmitz PhD, Phone: ??[phone] Marie Silverman BRANCH OPERATION EVALUATION MANAGER CHEMISTRY ORDER TESS [facility] * COMPREHENSIVE [...] 8:49 AM CDT Performed at: ??01 - [facility] ??[id number] Hogshead Stock Clerk: Reinaldo Schmitz PhD, Phone: ??[phone] Marie Silverman BRANCH OPERATION EVALUATION MANAGER CHEMISTRY ORDER TESS [facility] ST[facility] * CBC WITH DIFFERENTIAL (12/28/2017 7:33 AM CDT) [facility] RESULT 5.5 3.4 - 10.8 x10E3/uL [...] - 0.9 x10E3/uL [facility] Comment:Component Name: [place] cytes(Absolute) [facility] RESULT 0.2 0.0 - 0.4 [...] AM CDT Performed at: ??01 - [facility] [address] ??[id number] Hogshead Stock Clerk: Reinaldo Schmitz PhD, Phone: ??[phone] Marie Silverman BRANCH OPERATION EVALUATION MANAGER HEMATOLOGY DOUGLAS BECKHAM [facility] ST[facility] documented in this encounter Visit Diagnoses Diagnosis Screening for condition- Primary Screening for unspecified condition documented in this encounter Care Teams Bobbin Cleaner Relationship Specialty Start Date End Date Lilibeth Low MD PCP - General Family Practice 12/28/17 documented as of this encounter
--- OUTSIDE RECORDS SUMMARY | 2024-06-18 16:21 | XMS_ITS | Encounter Summary ---
Author Organization [facility] Address [address] [place] [address] Care Team Providers Care Forensic Computer Examiner Name Role Phone Lilibeth Low MD Primary Care Provider +1- [phone] Reason for Visit * Reason Onset Date Comments Appointment Verification 12/09/2021 Encounter Details Date Type Department Care Team (Late st Contact Info) Description 12/09/2021 Telephone [facility] at Work [place] [address] [place] [address] Lilibeth Low MD [address] [facility] [address] [place] [address] Appointment Verification Social History Tobacco [...] on 12/10/21 at 10:20 am at the [facility]. documented in this encounter Plan of Treatment Not on file documented as of this encounter Visit Diagnoses Not on filedocumented in this encounter Care Teams Forensic Computer Examiner Relationship Specialty Start Date End Date Lilibeth Low MD PCP - General Family Practice 12/28/17 documented as of this encounter
--- OUTSIDE RECORDS SUMMARY | 2024-06-18 16:21 | XMS_ITS | Encounter Summary ---
Author Organization [facility] Address [address] [place] [address] Care Team Providers Care Watch Commander Name Role Phone Unavailable Primary Care Provider Unavailabl e Reason for Visit * Reason Onset Date Comments Follow-up 07/04/2017 Encounter Details Date Type Department Care Team (Late st Contact Info) Description 07/04/2017 Telephone [facility] [address] [place] [address] Lu Reed, INSURANCE WRITER-[facility] [address] [place], [place] Follow-up Social History Tobacco Use Types [...]
--- OUTSIDE RECORDS SUMMARY | 2024-06-18 16:21 | XMS_ITS | Encounter Summary ---
Author Organization [facility] Address [address] [place] [address] Care Team Providers Care Mount Loader Name Role Phone Lilibeth Low MD Primary Care Provider +1- [phone] Reason for Visit * Reason Comments Labs Only Encounter Details Date Type Department Care Team (Latest Contact Info) Description 12/09/2020 2:30 PM CDT Clinical Support [facility] [place] [address] [place] [address] Encounter for screening, unspecified (Primary [...] PM CDT) CHOLESTEROL 302(A) 200 mg/dL [facility] HDL 53 40 - 59 mg/dL [facility] LDL CALCULATED 223(A) 100 mg/dL [facility] TRIGLYCERIDE 128 150 mg/dL [facility] NON-HDL CHOLESTEROL 0 130 mg/dL [facility] Comment:NA CHOL/HDL RATIO 5.7 [facility] GLUCOSE POC 104(A) 74 - 99 mg/dL [facility] Blood 12/09/2020 2:31 PM CDT Abstract Provider POINT OF CARE TESTIN G COM [facility] CLIA# [id number] [address] [place] [address] documented in this encounter Visit Diagnoses Diagnosis Encounter for screening, unspecified- Primary documented in this encounter Care Teams Mount Loader Relationship Specialty Start Date End Date Lilibeth Low MD PCP - General Family Practice 12/28/17 documented as of this encounter
--- OUTSIDE RECORDS SUMMARY | 2024-06-18 16:21 | XMS_ITS | Clinical Summary ---
Author Organization [facility] Address [address] [place] [address] Care Team Providers Care Jboss Architect Name Role Phone Unavailable Primary Care Provider Unavailabl e Source Comments [facility],non-owned Affiliates and Associated Physician Practices is amultiple site organization consisting of ambulatory clinics and hospital sitesin [place], [place], [place] and [place]. This disclosure is being madepursuant to the Care Everywhere program and may not contain all information available regarding this patient. Last updated 18.[facility] Allergies No known active allergies Medications Be aware that medications may not be up to date on this document. Always verify current medications with the patient. No known medications Family History Medical History Relation Name Comments CAD (Coronary Artery Disease) Father [place] x 2; CABG Relation Name Status Comments Father Social History Tobacco Use Types Packs/Day Years Used Date Smoking Tobacco: Never Smokeless Tobacco: Never Sex and Gender Information Value Date Recorded Sex Assigned at Not on file Gender Identity Not on file Sexual Orientation Not on file Last Filed Vital Signs Vital Sign Reading Time Taken Comments Blood Pressure 114/80 07/02/2017 3:45 PM ASSISTANT ACCOUNTING MANAGER Pulse 74 07/02/2017 3:45 PM ASSISTANT ACCOUNTING MANAGER Temperature 36.8 ??C (98.3 ??F) 07/02/2017 3:45 PM CS T Respiratory Rate 16 07/02/2017 3:45 PM ASSISTANT ACCOUNTING MANAGER Oxygen Saturation 98% 07/02/2017 3:45 PM ASSISTANT ACCOUNTING MANAGER Inhaled Oxygen Concentration - - Weight 108.4 kg (239 lb) 07/02/2017 3:45 PM ASSISTANT ACCOUNTING MANAGER Height 188 cm (6' 2 ) 07/02/2017 3:45 PM ASSISTANT ACCOUNTING MANAGER Body Mass Index 30.69 07/02/2017 3:45 PM ASSISTANT ACCOUNTING MANAGER Plan of Treatment Health Maintenance Due [...]
--- OUTSIDE RECORDS SUMMARY | 2024-06-18 16:21 | XMS_ITS | Encounter Summary ---
Author Organization [facility] Address [address] [place] [address] Phone Care Team Providers Care Plastic Mould Maker Name Role Phone Lilibeth Low MD Primary Care Provider Encounter Details Date Type Department Care Team (Late st Contact Info) Description 05/07/2021 Telephone [facility] Orthopaedic Surgery [facility] Advanced Medicine 6th [place] [address] [place] [address] Gretchen Nelson RMA Social History Tobacco Use Types Packs/Day Years Used Date Smoking Tobacco: Never Assessed Sex and Gender Information Value Date Recorded Sex Assigned at Not on file Legal Sex Male 9:11 AM DESULFURIZER MACHINE Gender Identity Male 05/26/2021 9:18 AM DESULFURIZER MACHINE Sexual Orientation Not on file documented as of this encounter Miscellaneous Notes * Telephone Encounter - Gretchen Nelson RMA - 05/07/2021 4:18 PM DESULFURIZER MACHINE I spoke with Chaparro today regarding treatment [...] on getting xrays on disc to bring. LFURIZER MACHINE documented in this encounter Plan of Treatment Not on file documented as of this encounter Visit Diagnoses Not on filedocumented in this encounter Care Teams Plastic Mould Maker Relationship Specialty Start Date End Date Lilibeth Low MD [address] [place] [id number] PCP - General Family Medicine 04/29/21 documented as of this encounter
--- OUTSIDE RECORDS SUMMARY | 2024-06-18 16:21 | XMS_ITS | Encounter Summary ---
Author Organization [facility] Address [address] [place] [address] Care Team Providers Care Sizing Sponger Name Role Phone Lilibeth Low MD Primary Care Provider +1- [phone] Reason for Visit * Reason Comments Labs Only Encounter Details Date Type Department Care Team (Latest Contact Info) Description 12/10/2021 10:20 AM CDT Clinical Support [facility] [place] [address] [place] [address] Encounter for screening, unspecified (Primary [...] HDL POC 39(A) 40 - 59 mg/dL [facility] [place] LDL CALCULATED POC 163(A) 100 mg/dL [facility] TRIGLYCERIDES POC 93 150 mg/dL [facility] NON-HDL CHOLESTEROL POC 0 130 mg/dL [facility] Comment:NA CHOL/HDL RATIO POC 5.6 [facility] GLUCOSE POC 87 65 - 99 mg/dL [facility] Blood 12/10/2021 10:2 4 AM CDT Abstract Provider POINT OF CARE TESTIN G COM [facility] CLIA# [id number] [address] [place] [address] documented in this encounter Visit Diagnoses Diagnosis Encounter for screening, unspecified- Primary documented in this encounter Care Teams Sizing Sponger Relationship Specialty Start Date End Date Lilibeth Low MD PCP - General Family Practice 12/28/17 documented as of this encounter
--- OUTSIDE RECORDS SUMMARY | 2024-06-18 16:21 | XMS_ITS | Encounter Summary ---
Author Organization [facility] Address [address] [place] [address] Care Team Providers Care Seaweed Harvester Name Role Phone Lilibeth Low MD Primary Care Provider Reason for Referral * Diagnostic Imaging (Routine) - Closed Specialty Diagnoses / Procedures Referred By Contac t Referred To Contact Diagnoses Lumbar spine pain Procedures XR Spine Lumbar 4 or More Views Anat Miles NP [address] [facility] [address] [place] [address] Phone: tel: fax: [facility] Referral ID Status Reason Start Date Expiration Date Visits Re quested Visits Authorized [id number] Closed 05/22/2021 06/21/2022 1 1 NESS MANAGEMENT ASSOCIATE Reason for Visit * Diagnostic Imaging (Routine) - Closed Specialty Diagnoses / Procedures Referred By Contac t Referred To Contact Diagnoses Lumbar spine pain Procedures XR Spine Lumbar 4 or More Views Anat Miles NP [address] [facility] [address] [place] [address] Phone: tel: fax: [facility] Referral ID Status Reason Start Date Expiration Date Visits Re quested Visits Authorized [id number] Closed 05/22/2021 06/21/2022 1 1 Encounter Details Date Type Department Care Team (Latest Contact Info) Description 05/26/2021 9:17 AM BUSINESS MANAGEMENT ASSOCIATE - 05/26/2021 11:59 PM BUSINESS MANAGEMENT ASSOCIATE Hospital Encounter [facility] [address] [place] [address] Anat Miles, ROCK PICKER [address] [facility] [address] [place] [address] Lumbar spine pain Discharge Disposition: Discharge to home or self care Social History Tobacco Use Types Packs/Day Years Used Date Smoking Tobacco: Never Smokeless Tobacco: Never Sex and Gender Information Value Date Recorded Sex Assigned at Not on file Legal Sex Male 9:11 AM BUSINESS MANAGEMENT ASSOCIATE Gender Identity Male 05/26/2021 9:18 AM BUSINESS MANAGEMENT ASSOCIATE Sexual Orientation Not on file documented as [...] Read Routine (OP Routine) 05/26/2021 9:37 AM BUSINESS MANAGEMENT ASSOCIATE Lumbar spine pain documented in this encounter Results * XR Spine Lumbar 4 or More Views (05/26/2021 9:37 AM BUSINESS MANAGEMENT ASSOCIATE) Anatomical Region Laterality Modality Spine N/A Computed Radiogr aphy 05/26/2021 9:44 AM BUSINESS MANAGEMENT ASSOCIATE Impressions 05/26/2021 9:44 AM BUSINESS MANAGEMENT ASSOCIATE 1. Multilevel degenerative disc disease worst and mild at L1-L2. Electronically signed by: Rosendo Anthony MD Narrative 05/26/2021 9:44 AM BUSINESS MANAGEMENT ASSOCIATE EXAMINATION: XR SPINE LUMBAR 4 OR MORE [...] signed by: Rosendo Anthony MD Anat Miles ROCK PICKER IMG XR PROCEDURES Lucia l Result documented in this encounter Visit Diagnoses Diagnosis Lumbar spine pain documented in this encounter Care Teams Seaweed Harvester Relationship Specialty Start Date End Date Lilibeth Low MD [address] [facility] [address] [place] [address] PCP - General Family Medicine 04/29/21 documented as of this encounter
--- OUTSIDE RECORDS SUMMARY | 2024-06-18 16:21 | XMS_ITS | Encounter Summary ---
Author Organization [facility] Address [address] [place] [address] Care Team Providers Care Assemblies And Installations Inspector Name Role Phone Lilibeth Low MD Primary Care Provider +1- [phone] Encounter Details Date Type Department Care Team [...] on filedocumented in this encounter Care Teams Assemblies And Installations Inspector Relationship Specialty Start Date End Date Lilibeth Low MD PCP - General Family Practice 12/28/17 documented as of this encounter
== END 2024-06-11 09:31 | disposition home or self-care (01) ==
PROVIDERS: Emergency Provider Nurse Practitioner Family; PCP Family Medicine
DX: S39.012A Strain of muscle, fascia and tendon of lower back, initial encounter (principal); X50.0XXA Overexertion from strenuous movement or load, initial encounter
CPT/HCPCS: 99213; G0463

== ENCOUNTER 2025-06-03 00:42 | Day surgery (SDC) | payer OTHER, SELFPAY ==
[2025-05-30 13:45] VITALS: BMI 30.3
--- NOTE | 2025-05-30 13:49 | SUR.PREOP ---
[facility] [place] has started construction of its new state of the art ER which will open Spring 2026. With this, we anticipate parking may be a challenge for some our surgical patients and families. Parking spaces are limited but are available for all Surgical, obstetrics, and ER patients sharing this lot. If you arrive and find you are having a hard time finding a parking space, please note that we understand the challenges, please drive around the hospital and park near Hospital Entrance 1. When you enter this entrance, you can ask a volunteer to direct or take you back to the surgical waiting area to check in. We appreciate everyone?s understanding of these expected challenges while we build for your future. Report to the Outpatient Waiting Room, entrance under the green pavilion located off [address], at time 1000__ on date ___06/03/25____. Planned Procedure Time: __1200 .? Time changes happen often and if your time is changed the preop area will call you the afternoon before. - You and your visitor will be asked to self-screen and do not enter if you have any COVID symptoms. Please call surgeon if you need to reschedule. - A mask is optional within the hospital at this time. Patients may have clear liquids (water, carbonated beverages, clear teas, apple juice) until 3 hours prior to surgery with a maximum of 20 ounces. - No food from midnight until time of surgery and no smoking, or chewing tobacco (or any form of nicotine). No chewing gum, candy or mints. Take only the following medications with a SIP of water on the morning of surgery: NA DO NOT STOP ANY OF YOUR OTHER PRESCRIPTION MEDICATIONS PRIOR TO SURGERY EXCEPT THE FOLLOWING Hold all vitamins and supplements for 3 days per anesthesiologist. Medications to discontinue per physician NA Date to take last dose Please no make-up, nail kittitian, hairspray, perfume, deodorant, or body powder the day of surgery.? No jewelry (including any body piercings) or valuables the day of surgery, leave them at home.? Please take a shower or bath the night before, or the morning of, surgery with an antibacterial soap.? Wear comfortable, loose fitting clothing.? Children are encouraged to wear pajamas. - Jewelry must be removed prior to entering the operating room.? Rings and piercings that are not removed may be cut off. - The hospital will not accept responsibility for valuables.? - Please leave all valuables, including medications, at home the day of surgery. If you are going home after surgery, a licensed trash collector truck driver must drive you home.? - NO public transportation without another adult if you receive anesthesia. - We recommend that an adult stay with you for 24 hours following discharge. - We also recommend that you do not drive, make important decision, drink alcoholic beverages, or take any drugs that were not prescribed by your health care provider for at least 24 hours after your discharge time. For Pediatric surgeries, we recommend two adults accompany the child home. Follow any additional instructions given to you from your surgeon. Telephone instructions given to patient Nabil and asked if any additional questions and then verbalized understanding. Patient advised to call surgeon office or pre surgery nurse liaison [phone] if any additional questions.
--- OUTSIDE RECORDS SUMMARY | 2025-06-03 00:44 | XMS_ITS | Clinical Summary ---
Author Organization [facility] Address [address] [place] [address] Care Team Providers Care Organ Installer Name Role Phone Lilibeth Low MD Primary [...] on file Legal Sex Male 9:11 AM WASTE PICKER Gender Identity Male 05/26/2021 9:18 AM WASTE PICKER Sexual Orientation Not on file Last Filed Vital Signs Vital Sign Reading Time Taken Comments Blood Pressure - - Pulse - - Temperature - - Respiratory Rate - - Oxygen Saturation - - Inhaled Oxygen Concentration - - Weight 103 kg (227 lb) 05/26/2021 10:08 AM WASTE PICKER Height 188 cm (6' 2) 05/26/2021 10:08 AM WASTE PICKER Body Mass Index 29.15 05/26/2021 10:08 AM WASTE PICKER Plan of Treatment Not on file Insurance R [facility] Care Teams Organ Installer Relationship Specialty Start Date End Date Lilibeth Low MD [address] [facility] [address] [place] [address] PCP - General Family Medicine 04/29/21
--- OUTSIDE RECORDS SUMMARY | 2025-06-03 00:44 | XMS_ITS | Clinical Summary ---
Author Organization [facility] Address [address] [place] [address] Care Team Providers Care Fitness Floor Attendant Name Role Phone Unavailable Primary Care Provider Unavailabl e Source Comments [facility],non-owned Affiliates and Associated Physician Practices is amultiple site organization consisting of ambulatory clinics and hospital sitesin [place], [place], [place] and [place]. This disclosure is being madepursuant to the Care Everywhere program and may not contain all information available regarding this patient. Last updated 18.[facility] Allergies No known active allergies Medications * Be aware that medications may not be up to date on this document. Alwaysverify current medications with the patient. No known medications Family History Medical History Relation Name Comments CAD (Coronary Artery Disease) Father [place] x 2; CABG Relation Name Status Comments Father Social History Tobacco Use Types Packs/Day Years Used Date Smoking Tobacco: Never Smokeless Tobacco: Never Sex and Gender Information Value Date Recorded Sex Assigned at Not on file Legal Sex Male 12:09 PM DISTRICT PLANT SUPERVISOR Gender Identity Not on file Sexual Orientation Not on file Last Filed Vital Signs Vital Sign Reading Time Taken Comments Blood Pressure 114/80 07/02/2017 3:45 PM DISTRICT PLANT SUPERVISOR Pulse 74 07/02/2017 3:45 PM DISTRICT PLANT SUPERVISOR Temperature 36.8 C (98.3 F) 07/02/2017 3:45 PM DISTRICT PLANT SUPERVISOR Respiratory Rate 16 07/02/2017 3:45 PM DISTRICT PLANT SUPERVISOR Oxygen Saturation 98% 07/02/2017 3:45 PM DISTRICT PLANT SUPERVISOR Inhaled Oxygen Concentration - - Weight 108.4 kg (239 lb) 07/02/2017 3:45 PM DISTRICT PLANT SUPERVISOR Height 188 cm (6' 2) 07/02/2017 3:45 PM DISTRICT PLANT SUPERVISOR Body Mass Index 30.69 07/02/2017 3:45 PM DISTRICT PLANT SUPERVISOR Plan of Treatment Health Maintenance Due Date Last Done Comments OGCAMILO (AGES 45-75) - COL ON CA SCREENING [...] - 19+ 3-dose series) 1997 DEPRESSION SCREENING 06/20/2024 COVID-19 VACCINE (1 - 2024-2 6 season) 2025 INFLUENZA VACCINE (#1) 2025 ZOSTER VACCINE (1 of 2) 2028 HIB VACCINE Aged Out No longer eligi ble based on patient's age to complete this topic HPV VACCINE Aged Out No longer eligi ble based on patient's age to complete this topic MENINGOCOCCAL (Group B) VACC INE SHARED DECISION-MAKING Aged Out No longer eligibl e based on patient's age to complete this topic MENINGOCOCCAL GROUPS A/C/Y/W VACCINE Aged Out No longer eligible b ased on patient's age to complete this topic PNEUMOCOCCAL VACCINE Aged Out No long er eligible based on patient's age to complete this topic Insurance
--- OUTSIDE RECORDS SUMMARY | 2025-06-03 00:44 | XMS_ITS | Clinical Summary ---
Author Organization [facility] [place] Address [address] [place] [address] Care Team Providers Care Automatic Grinder Operator Name Role Phone Lilibeth Low MD Primary Care Provider +1- [phone] Medications No known medications Active Problems No [...] at Not on file Legal Sex Male 12:02 PM CDT Gender Identity Not on file Sexual Orientation Not on file Last Filed Vital Signs Vital Sign Reading Time Taken Comments Blood Pressure 122/70 11/05/2022 11:02 AM CDT Pulse 95 12/28/2017 7:13 AM CDT Temperature - - Respiratory Rate - - Oxygen Saturation - - Inhaled Oxygen Concentration - - Weight 107 kg (236 lb) 11/05/2022 11:02 AM CDT Height 190.5 cm (6' 3) 11/05/2022 11:02 AM CDT Body Mass Index 29.5 11/05/2022 11:02 AM CDT Plan of Treatment Health Maintenance Due Date Last Done Comments DTAP/TDAP/TD VACCINES (1 - Tdap) 1997 HEPATITIS B VACCINES (1 of 3 - 19+ 3-dose series) 08/20 COLORECTAL SCREENING 09/17/2023 Colorectal Cancer Screening 09/17/2023 FIT-DNA Q 3 years 09/17/2023 FIT/FOBT Q 1 year 09/17/2023 Flex Sig/CT Colonography Q 5 years 09/17/2023 INFLUENZA VACCINE (#1) 2025 HPV VACCINES (No Doses Required) Completed Insurance [employer] OPEN [employer]ESS * Guarantor: KARAN TOMPKINS[employer] Account Type Relation to Patient Date of Phone Billing Address Corporate Employer ATTN: CHARLES GARCIA [address] [address] Care Teams Automatic Grinder Operator Relationship Specialty Start Date End Date Lilibeth Low MD PCP - General Family Practice 12/28/17
[2025-06-03] MEDS: LACTATED RINGERS 1,000 ML 30 ML IV CONT (08:00)
--- NOTE | 2025-06-03 08:27 | P.PNAN_ITS ---
Anes - Initial Pre Proc Eval Procedure: Operation Date: 06/03/25 09:30 Proposed Procedures p Excision Biopsy Left Back Cyst - Erna Chin MD Date/Time: 06/03/25 08:27 Surgeon: Erna Chin MD Pre Op Diagnosis: Left Back Cyst 4 cm Patient Data Age: 44 Gender: M Height: 1.88 m Weight: 107.28 kg Allergies Allergy/AdvReac Type Severity Reaction Status Date / Time No Known Allergies Allergy Verified 05/30/25 13:37 Home Medications ?Medication ?Instructions ?Recorded ?Confirmed ?Type No Home Medications 05/14/25 05/30/25 H istory Patient hx anesthesia problems: none Family hx anesthesia problems: none Results Review: All pre-operative results and documents have been reviewed as part of the pre- operative evaluation. [facility] Past Medical History Medical History Lumbosacral spondylosis with radiculopathy Family History Family History Father Family history of premature coronary heart disease Patient's father is in good health Cerebrovascular accident Mother Patient's mother is in good health Heart problem Sibling Patient's sister is in good health Social History Social History Social History: Smoking status: Never smoker Second hand tobacco smoke exposure: No Alcohol intake: current Alcohol use details: Once a month. Substance use: never Substance use type: does not use Lack of Transportation: No Lack of Food: Never True Current Housing: I Have Housing Concerned About Future Housing: No Difficulty Paying Gas/Electric Bills: No Difficulty Paying for Meds: No Currently Unemployed: No Education: Master's Degree or Higher Difficulty w/ Childcare or Family Care: No Living arrangements: with family Occupation/Education: occupation Additional occupation/education comments: [employer] Gender identity (if verbalized by the patient): Male Sexual Orientation (if Verbalized by the Patient): Straight or Heterosexual Spiritual care concerns: No Anes - Eval Final PreProcedure Day of Procedure 06/03/25 08:27 Patient weight: obese Heart: regular rate and rhythm Lungs: clear to auscultation Airway: Mallampati scale class II Neurological: alert and oriented Last oral intake: >/= 8 hours ASA classification: II Emergent: no Anesthetic plan: proceed Anesthesia type and monitoring: general GIVS and standard monitoring Results Review: All pre-operative results and documents have been reviewed as part of the pre- operative evaluation. Informed Consent: The patient's anesthetic plan and its attendant risks and benefits were discussed with the patient/family/POA. Questions were solicited and answers provided to the satisfaction of the patient/family/POA.
[2025-06-03 09:02] VITALS: BP 132/74; PULSE 74; RESP 16; TEMP 36.4; O2SAT 98
--- NOTE | 2025-06-03 09:05 | WPDHPUPDATE1 ---
History and Physical Update Update Date/Time: 06/03/25 09:05 History and Physical has been reviewed, including an updated exam of the patient. There are NO changes in the patient's condition. Risks, benefits, and alternatives have been discussed and questions answered. Patient agrees to proceed with procedure.
[2025-06-03] MEDS: ceFAZolin 2 GM in SODIUM CHLORIDE 0.9% IV 50 ML 100 ML IVPB (09:30)
--- NOTE | 2025-06-03 09:55 | S_PTH ---
PATIENT: Chaparro Romero LOC: [facility] U#:[id number] AGE/SX: 44/M ROOM: RE06/03/[address]: Erna Chin MD : 1980 BED: DIS: 06/03/2025 SPEC #: [id number] RECD: 06/03/25 12:03 STATUS: SANDIP PRUETT #: [id number] SANDRA: 06/03/25 09:[address]: Erna Chin DEPT: [facility] Surgical RECD BY: Nithya Clarke ENTERED: 06/03/25 12:03 SP TYPE: Surgical OTHR DR: Homar Munguia MD Tissues: A - Cyst Procedures: Hematoxylin and Eosin Stain Gross and Microscopic Level 4
[2025-06-03] MEDS: BUPIVACAINE/EPINEPHRINE 0.5% 50 ML VIAL 30 ML INFILTRATE (09:59)
--- NOTE | 2025-06-03 10:09 | WNDPHOTO ---
PHOTO ONLY - See Nursing Notes and/ or assessments for documentation.
--- NOTE | 2025-06-03 10:10 | WNDPHOTO ---
PHOTO ONLY - See Nursing Notes and/ or assessments for documentation.
--- NOTE | 2025-06-03 10:12 | W.PM.PROC2 ---
Procedure Note - Detailed Date of Procedure 06/03/25 Pre-op Diagnosis left mid back cyst measuring 4 x 4 cm with noted rupture Post-op Diagnosis Same Procedure Performed excisional biopsy mid left back cyst measuring 4 x 4 cm Surgeon Erna Chin MD Anesthesia MAC and Local Indications 44-year-old male with chronic left mid back cyst reporting increased symptomatology and drainage over last few months Findings ruptured mid back cyst measuring 4 x 4 cm Description of Procedure The patient was taken to the operating room and placed in the lateral position. After adequate induction of MAC anesthesia, the patient was prepped and draped in the normal sterile fashion. A time-out was then done to verify the patient's identity, as well as the procedure being performed. Local anesthetic was placed in and around cystic mass. I made an elliptical incision the dermis centered around a punctate opening that was draining sebaceous material. This incision was carried down through the dermis and into the subcutaneous tissue. A large ruptured sebaceous cyst was noted within the subcutaneous tissue. Using both blunt dissection with the hemostat and electrocautery, I was able to completely excise this cystic mass. This measured 4 x 4 cm and was most consistent with a ruptured sebaceous cyst. There was no evidence of active infection. The entire cystic wall was removed and excised. It will now be sent to pathology for further review. I then copiously irrigated the cavity and further local anesthetic was placed. We then closed the subcutaneous tissue with 3-0 Vicryl suture. The skin was closed with 4-0 Monocryl subcuticular suture. Dermabond was placed on the wound. The patient tolerated the procedure well. He was alert and awake in the operating room postop. He will be sent to the recovery room in stable condition. Estimated Blood Loss 5 Pathology Yes Complications No immediate complications Condition Stable Disposition PACU [facility] Billing Surgery - Charge Forward: Surgery Billing
[2025-06-03 10:19] VITALS: BP 105/69; PULSE 77; RESP 16; O2SAT 97
[2025-06-03 10:45] VITALS: BP 122/70; PULSE 61
[2025-06-03 11:15] VITALS: BP 126/71; PULSE 66
--- NOTE | 2025-06-03 12:36 | SUR.PHASEII ---
Addendum entered by Nadine Kim RN 06/03/25 12:40: pt met criteria for discharge at 1130 Original Note: pt meets discharge criteria. pt waiting for his ride home. iv out and charted at 1135. vitals stable
== END 2025-06-03 12:15 | disposition home or self-care (01) ==
PROVIDERS: PCP Family Medicine; Visit Provider Surgery
PROC: (CPT 11406; principal; 2025-06-03 09:30)
DX: L72.0 Epidermal cyst (principal); E66.9 Obesity, unspecified; Z68.30 Body mass index [BMI] 30.0-30.9, adult
CPT/HCPCS: 11406; 12032; 88305; J0690; J1100; J2003; J2250; J2405; J2704; J3010; J7120